=== PATIENT | male | born 1945 | race Caucasian/White ===

== ENCOUNTER 2017-10-20 11:42 | Inpatient (IN) | payer OTHER ==
[~2017-10-20] VITALS: Ht 175.3 cm; Wt 105.7 kg
--- NOTE | ~2017-10-20 | EKG ---
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 : 1945 Requested By: Meg Zhang Order Number: [id number] MD: Manjeet Winters Measurements Intervals [place] Rate: 80 P: [place]: QRS: -64 QRSD: 175 T: 102 QT: 456 QTc: 527 Interpretive Statements V-paced complexes No further analysis attempted due to paced rhythm Compared to ECG 04/07/2015 14:29:59 Ventricular pacing now present Electronically Signed On 10-21-2017 7:59:35 MARINE PLUMBER by Manjeet Winters [email or web address] <ELECTRONICALLY SIGNED> By: Manjeet Winters MD, [facility] 10/21/17 0759 1152 51 Manjeet Winters MD, FACC /EPI
[~2017-10-20 11:42] MED LIST: ADULT LOW DOSE81 MG PO; ALPRAZOLAM ER1 MG PO; ALPRAZOLAM1 MG PO; AMBIEN 10 MG TA10 MG PO; AMPICILLIN SOD500 MG PO; ASPIR 8181 MG PO; ASPIRIN EC81 M1 PO; ASPIRIN325 PO; AUGMENTIN 875-1 EACH PO; AZITHROMYCIN 2250 MG PO; B-100 COMPLEX1 EAC1 PO; BENICAR HCT 401 EAC1 PO; BENICAR20 MG PO; BENICAR40 MG PO; CARVEDILOL25 MG PO; CEFTIN 250 MG250 MG PO; CLOPIDOGREL PO; CO Q-10100 MG PO; COREG PO; DAZIDOX20 MG PO; DEMADEX20 MG PO; ESOMEPRAZOLE PO; FLONASE16 GM NASAL; GLUCOPHAGE500 MG PO; HYDROCHLOROTHIA25 M2 PO; IMDUR 30 MG TAB30 M1 PO; IMDUR 60 MG TAB60 M1 PO; ISOSORBIDE DINI30 MG PO; LIVALO1 MG; MULTI-VITAMIN1 EAC5 PO; NASAL & SINUS D30 MG PO; NEPHROCAPS SOFT1 CAP PO; NEXIUM20 M1 PO; NITROSTAT0.4 MG SUBLING; NORVASC10 MG PO; OMEPRAZOLE 20 M20 MG PO; OMEPRAZOLE MAGN20 MG PO; OXYCODONE HCL15 MG PO; OXYCODONE HCL20 M1 PO; PACERONE 200 M200 M1 PO; POTASSIUM20 PO; PRADAXA150 MG PO; PRAVACHOL40 MG PO; PRILOSEC 20 MG20 MG PO; SYNTHROID50 MCG PO; TYLENOL325 MG PO; VITAMINC500 PO
[2017-10-20 11:49] VITALS: BP 132/88
[2017-10-20 12:25] LABS: ABSOLUTE NEUTROPHILS 6.2 thou/uL (1.4-8.2); BASOPHILS 0.9 % (0.0-2.0); EOSINOPHILS 1.7 % (0.0-3.0); HEMATOCRIT 34.6 % (42.0-52.0); HEMOGLOBIN 11.1 gm/dL (14.0-18.0); LYMPHOCYTES 10.9 % (24.0-44.0); MCH 27.1 pg (26.0-34.0); MCHC 32.1 g/dL (28.0-37.0); MCV 84.4 fL (80.0-100.0); MONOCYTES 7.3 % (1.0-8.0); PLATELET COUNT 232 thou/uL (150-400); POLYS 79.2 % (36.0-66.0); RDW 16.6 % (10.5-14.5); WBC 7.8 thou/uL (4.0-11.0)
[2017-10-20 12:44] LABS: ANION GAP 6 mmol/L (7-16); BUN 20 mg/dL (7-18); CALCIUM 9.1 mg/dL (8.5-10.1); CHLORIDE 108 mmol/L (98-107); CO2 32 mmol/L (21-32); CREATININE 1.5 mg/dL (0.7-1.3); GLUCOSE 141 mg/dL (74-106); POTASSIUM 3.5 mmol/L (3.5-5.1); SODIUM 146 mmol/L (136-145)
[2017-10-20 12:52] LABS: TROPONIN-I < 0.04 ng/mL (<0.06)
[2017-10-20 16:36] VITALS: BP 146/93
[2017-10-20 17:09] VITALS: BP 144/90
[2017-10-20 17:20] VITALS: BP 152/91
[2017-10-20 20:12] VITALS: BP 122/63
[2017-10-21 00:20] VITALS: BP 156/63
[2017-10-21 04:30] VITALS: BP 162/98
[2017-10-21 08:40] VITALS: BP 145/83
[2017-10-21 16:20] VITALS: BP 131/75
[2017-10-21 20:46] VITALS: BP 135/71
[2017-10-22 04:00] VITALS: BP 157/83
[2017-10-22 07:59] VITALS: BP 155/99
[2017-10-22] MEDS ORDERED: LEVAQUIN 500 M500 M2 PO (09:51)
[2017-10-22] MEDS ORDERED: OSELB75 PO (09:51)
[2017-10-22 14:12] VITALS: BP 155/99
[2017-10-22 14:28] VITALS: BP 155/99
[2017-10-24 00:09] LABS: ADENOVIRUS Negative (Negative); INFLUENZA A Negative (Negative); INFLUENZA B Negative (Negative); METAPNEUMOVIRUS Negative (Negative); PARAINFLUENZA 1 Negative (Negative); PARAINFLUENZA 2 Negative (Negative); PARAINFLUENZA 3 Negative (Negative); RHINOVIRUS Negative (Negative); RSV A Negative (Negative); RSV B Negative (Negative)
[2017-11-19] MEDS ORDERED: IMDUR 30 MG TAB30 M1 PO (07:56)
[2017-11-19] MEDS ORDERED: DEMADEX20 MG PO (08:01)
[2017-11-19] MEDS ORDERED: XANAX1 MG PO (08:02)
== END 2017-10-22 16:01 | disposition home or self-care (01) | DRG 193 ==
LOC: ER 11:42 → EROBS 15:22 → 3W 15:22 → ENTRNSPT 10-22 15:47 → EDTRNSPTSTS 10-22 15:49 → 3W 10-22 16:01
PROVIDERS: Emergency Medicine; Specialist
DX: J12.9 Viral pneumonia, unspecified (principal); J96.01 Acute respiratory failure with hypoxia; E11.9 Type 2 diabetes mellitus without complications; K21.9 Gastro-esophageal reflux disease without esophagitis; G47.33 Obstructive sleep apnea (adult) (pediatric); I12.9 Hypertensive chronic kidney disease with stage 1 through stage 4 chronic kidney disease, or unspecified chronic kidney disease; N18.9 Chronic kidney disease, unspecified; I25.5 Ischemic cardiomyopathy; I48.91 Unspecified atrial fibrillation; Z95.810 Presence of automatic (implantable) cardiac defibrillator; Z86.73 Personal history of transient ischemic attack (TIA), and cerebral infarction without residual deficits; Z79.51 Long term (current) use of inhaled steroids; Z79.82 Long term (current) use of aspirin; Z79.899 Other long term (current) drug therapy; Z28.21 Immunization not carried out because of patient refusal
CPT/HCPCS: 10879

== ENCOUNTER → 2017-11-19 | Outpatient (CLI) | payer OTHER ==
[~2017-11-19] VITALS: Ht 175.3 cm; Wt 106.6 kg
[~2017-11-19] MED LIST changes: +LEVAQUIN 500 M500 M2 PO; +OSELB75 PO; +XANAX1 MG PO
--- NOTE | ~2017-11-19 | CATHLAB ---
[facility] [address] [place] [address] INVASIVE PROCEDURE REPORT Name: ORLANDO RAMOS Room #: REG [facility] [id number] Admission: 11/19/17 Attend Phys: Manjeet Wintres, Discharge: Date of : 43 Date of Service: 12/18/17725 Report #: [id number] THIS REPORT FOR: //name// CC: Manjeet Meza DATE OF SERVICE: 11/19/2017 PROCEDURE: Cardioversion. INDICATION: Atrial flutter. DESCRIPTION OF PROCEDURE: The potential benefits and risks of the procedure were discussed at length with the patient who understood. Full written and informed consent was obtained. The patient was sedated with intravenous Versed and fentanyl, 100 biphasic synchronous joules were applied to the chest with prompt conversion of atrial flutter to sinus rhythm. He remained in hemodynamically, electrically and neurologically stable condition and was discharged home. CONCLUSION: Successful cardioversion of atrial flutter to sinus rhythm with a single 100 biphasic synchronous joule shock site. <ELECTRONICALLY SIGNED> By: Manjeet Winters MD, FACC 12/19/17 0750 5 0742 Manjeet Winters MD, FACC /nt
[2017-11-19 07:33] LABS: HEMATOCRIT 35.2 % (42.0-52.0); HEMOGLOBIN 11.5 gm/dL (14.0-18.0); MCH 26.9 pg (26.0-34.0); MCHC 32.6 g/dL (28.0-37.0); MCV 82.6 fL (80.0-100.0); RBC 4.26 mil/uL (4.50-6.00); RDW 16.6 % (10.5-14.5); WBC 7.4 thou/uL (4.0-11.0)
[2017-11-19 07:39] VITALS: BP 154/92
[2017-11-19 07:39] LABS: CALCIUM 8.7 mg/dL (8.5-10.1); CREATININE 1.8 mg/dL (0.7-1.3); POTASSIUM 3.7 mmol/L (3.5-5.1)
[2017-11-19 07:45] LABS: ALBUMIN 3.3 g/dL (3.4-5.0); TOTAL BILIRUBIN 0.8 mg/dL (<0.1-1.0); TOTAL PROTEIN 6.6 g/dL (6.4-8.2)
[2017-11-19 07:46] LABS: INR 1.2; PROTIME 12.7 Seconds (9.3-11.4)
== END | disposition home or self-care (01) ==
LOC: CATH 07:05
PROVIDERS: Internal Medicine
DX: I48.92 Unspecified atrial flutter (principal)

== ENCOUNTER → 2018-12-09 | Outpatient (CLI) | payer OTHER ==
--- NOTE | 2018-12-09 13:03 | 2DMMODE ---
[facility] [place] [address] 2 D/M-MODE ECHOCARDIOGRAM Name: ORLANDO RAMOS Room #: REG German#: [id number] ������������� Admission: 12/09/18 ������������� Attend Phys: Manjeet Winters, Discharge: ��� ������������� ��� Date of : 43 Date of Service: 12/09/18 1303 �� Report #: [id number] �������� ��������������������������������������������[id number] THIS REPORT FOR: //name// APPROVED REPORT Study performed: 12/09/2018 10:22:29 EXAM: Comprehensive 2D, Doppler, and color-flow Echocardiogram Patient Location: Out-Patient Room #: Echo lab 1 Status: routine BSA: 2.19 HR: 60 bpm BP: 136/86 mmHg Rhythm: NSR Other Information Study Quality: Technically Limited Indications Pacemaker CAD CABG Volumes Left Atrial Volume (Systole) Single Plane 4CH: 160.04 mL Single Plane 2CH: 134.56 mL LA ESV Index: 73.00 mL/m2 Aortic Valve AoV Peak Josse.: 1.05 m/s AO Peak Gr.: 4.37 mmHg LVOT Max P.36 mmHg LVOT Max V: 0.92 m/s Mitral Valve E/A Ratio: 0.9 MV Decel. Time: 351.23 ms MV E Max Josse.: 0.52 m/s MV A Josse.: 0.57 m/s MV PHT: 101.86 ms IVRT: 179.93 ms Pulmonary Valve PV Peak Josse.: 0.84 m/s PV Peak Gr.: 2.79 mmHg [facility] [address] [place] [address] 2 D/M-MODE ECHOCARDIOGRAM Name: RACHELORLANDO Karin Room #: REG [facility] [id number] ������������� Admission: 12/09/18 ������������� Attend Phys: Manjeet Winters, Discharge: ��� ������������� ��� Date of : 43 Date of Service: 12/09/18 1303 �� Report #: [id number] �������� ��������������������������������������������[id number] Tricuspid Valve TR Peak Josse.: 2.53 m/s TR Peak Gr.: 25.55 mmHg PA Pressure: 25.00 mmHg Left Ventricle The left ventricle is normal size. There is normal left ventricular wall thickness. The left ventricular systolic function is at the lower limits of normal. Hypokinesis base of inferior wall and septum. LVEF is 50%. This study is not technically sufficient to allow evaluation of the LV diastolic function. Right Ventricle The right ventricle is normal size. The right ventricular systolic function is normal. Pacemaker lead is present in the right ventricle. Atria Left atrium is dilated. Right atrium is dilated. Pacemaker lead is present in the right atrium. Aortic Valve The aortic valve is not well visualized, mildly calcified. Mild aortic regurgitation. There is no aortic valvular stenosis. Mitral Valve The mitral valve is normal in structure. Mild mitral regurgitation. No evidence of mitral valve stenosis. Tricuspid Valve The tricuspid valve is normal in structure. There is mild tricuspid regurgitation. Estimated PAP 25 mmHg plus the right atrial pressure. There is no pulmonary hypertension. Pulmonic Valve The pulmonary valve is normal in structure. Trace pulmonic regurgitation. Great Vessels The aortic root is normal in size. IVC is not well visualized. Pericardium There is no pericardial effusion. <Conclusion> [facility] [address] [place] [address] 2 D/M-MODE ECHOCARDIOGRAM Name: ORLANDO RAMOS Room #: REG [facility]ITAL[facility]#: [id number] ������������� Admission: 12/09/18 ������������� Attend Phys: Manjeet Winters, Discharge: ��� ������������� ��� Date of : 43 Date of Service: 12/09/18 1303 �� Report #: [id number] �������� ��������������������������������������������[id number] The left ventricular systolic function is at the lower limits of normal. Hypokinesis base of inferior wall and septum. LVEF is 50%. Both atria are mildly dilated. Pacing wires in right heart. The aortic valve is not well visualized, mildly calcified. Mild aortic regurgitation, no stenosis. The mitral valve is normal in structure. Mild mitral regurgitation. There is no pericardial effusion. ��������������������������������������������� <ELECTRONICALLY SIGNED> ���������������������������������������� By: Manjeet Winters MD, [facility] ��������������������������������������������� 12/09/18 1303 130 02 Manjeet Winters MD, FACC /INF
== END ==
LOC: CV 11-10 07:47
DX: I08.3 Combined rheumatic disorders of mitral, aortic and tricuspid valves (principal); I65.23 Occlusion and stenosis of bilateral carotid arteries; I10 Essential (primary) hypertension; I25.10 Atherosclerotic heart disease of native coronary artery without angina pectoris; Z95.1 Presence of aortocoronary bypass graft

== ENCOUNTER 2019-02-01 03:00 | Emergency (ER) | payer OTHER ==
[~2019-02-01] VITALS: Ht 175.3 cm; Wt 103.0 kg
[2019-02-01 04:14] LABS: ABSOLUTE NEUTROPHILS 6.1 thou/uL (1.4-8.2); BASOPHILS 0.4 % (0.0-2.0); EOSINOPHILS 1.2 % (0.0-3.0); HEMATOCRIT 33.3 % (42.0-52.0); HEMOGLOBIN 10.7 gm/dL (14.0-18.0); LYMPHOCYTES 8.3 % (24.0-44.0); MCH 26.5 pg (26.0-34.0); MCHC 32.1 g/dL (28.0-37.0); MCV 82.7 fL (80.0-100.0); MONOCYTES 9.3 % (1.0-8.0); PLATELET COUNT 181 thou/uL (150-400); POLYS 80.8 % (36.0-66.0); RBC 4.03 mil/uL (4.50-6.00); RDW 16.8 % (10.5-14.5); WBC 7.6 thou/uL (4.0-11.0)
[2019-02-01 04:24] LABS: ANION GAP 9 mmol/L (7-16); BUN 27 mg/dL (7-18); CHLORIDE 107 mmol/L (98-107); CO2 29 mmol/L (21-32); CREATININE 1.5 mg/dL (0.7-1.3); GLUCOSE 155 mg/dL (74-106); POTASSIUM 3.6 mmol/L (3.5-5.1); SODIUM 145 mmol/L (136-145)
[2019-02-01] MEDS ORDERED: ONDANSETRON ODT8 MG PO (04:26)
[2019-02-01 04:27] LABS: APTT 43.4 Seconds (24.5-32.8); INR 1.2; PROTIME 12.1 Seconds (9.3-11.4)
[2019-02-01 04:34] LABS: ALBUMIN 3.2 g/dL (3.4-5.0); SGOT 31 U/L (15-37); SGPT 35 U/L (30-65); TOTAL BILIRUBIN 1.4 mg/dL (<0.1-1.0); TOTAL PROTEIN 6.6 g/dL (6.4-8.2); TROPONIN-I <0.06 ng/mL (<0.06)
[2019-02-01 05:18] VITALS: BP 172/84
[2019-02-01 05:35] LABS: URINE BILIRUBIN NEGATIVE (Negative); URINE BLOOD NEGATIVE (Negative); URINE CLARITY CLEAR; URINE COLOR YELLOW; URINE GLUCOSE-RANDOM* NEGATIVE (Negative); URINE KETONES NEGATIVE (Negative); URINE LEUKOCYTES NEGATIVE (Negative); URINE NITRITE NEGATIVE (Negative); URINE PROTEIN (DIPSTICK) NEGATIVE (Negative); URINE UROBILINOGEN 0.2 E.U./dl (0.2-1.0)
--- NOTE | 2019-02-01 10:39 | EKG ---
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1945 Requested By: Wilner Murphy Order Number: [id number] MD: Tristan Bowers Measurements Intervals [place] Rate: 78 P: 34 [place]: 178 QRS: 5 QRSD: 124 T: -8 QT: 429 QTc: 489 Interpretive Statements Sinus rhythm Atrial premature complex Left ventricular hypertrophy Borderline T abnormalities, inferior leads Borderline prolonged QT interval Compared to ECG 10/20/2017 11:52:35 Atrial premature complex(es) now present Left ventricular hypertrophy now present T-wave abnormality now present Ventricular-paced complex(es) or rhythm no longer present Electronically Signed On 02-01-2019 10:38:51 CDT by Tristan Bowers [email or web address] ��������������������������������������������� <ELECTRONICALLY SIGNED> ���������������������������������������� By: Tristan Bowers MD ��������������������������������������������� 02/01/19 1038 0309 0309 Tristan Bowers MD /EPI
--- NOTE | 2019-02-01 10:39 | EKG ---
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 : 1945 Requested By: Wilner Murphy Order Number: [id number] MD: Tristan Bowers Measurements Intervals [place] Rate: 59 P: -7 NE: 121 QRS: 15 QRSD: 116 T: 133 QT: 438 QTc: 434 Interpretive Statements Sinus rhythm Ventricular premature complex LVH with secondary repolarization abnormality Compared to ECG 10/20/2017 11:52:35 Ventricular premature complex(es) now present Left ventricular hypertrophy now present Electronically Signed On 02-01-2019 10:39:13 CDT by Tristan Bowers [email or web address] ��������������������������������������������� <ELECTRONICALLY SIGNED> ���������������������������������������� By: Tristan Bowers MD ��������������������������������������������� 02/01/19 1039 0333 0333 Tristan Bowers MD /VINCENT
== END 2019-02-01 05:18 | disposition home or self-care (01) ==
LOC: ER 03:00
PROVIDERS: Emergency Medicine
DX: E11.22 Type 2 diabetes mellitus with diabetic chronic kidney disease (principal); I13.0 Hypertensive heart and chronic kidney disease with heart failure and stage 1 through stage 4 chronic kidney disease, or unspecified chronic kidney disease; N18.9 Chronic kidney disease, unspecified; I50.9 Heart failure, unspecified; K21.9 Gastro-esophageal reflux disease without esophagitis; G47.33 Obstructive sleep apnea (adult) (pediatric); I25.5 Ischemic cardiomyopathy; I48.91 Unspecified atrial fibrillation; Z86.73 Personal history of transient ischemic attack (TIA), and cerebral infarction without residual deficits; Z87.891 Personal history of nicotine dependence; Z79.899 Other long term (current) drug therapy; Z90.49 Acquired absence of other specified parts of digestive tract

== ENCOUNTER → 2019-03-11 | Outpatient (CLI) | payer OTHER ==
[~2019-03-11] MED LIST changes: +ONDANSETRON ODT8 MG PO
== END ==
LOC: RAD 11:01
DX: R14.0 Abdominal distension (gaseous) (principal); Z90.49 Acquired absence of other specified parts of digestive tract

== ENCOUNTER 2019-05-29 10:36 | Inpatient (IN) | payer OTHER ==
[~2019-05-29] VITALS: Ht 175.3 cm; Wt 104.8 kg
--- NOTE | ~2019-05-29 | EKG ---
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 : 1945 Requested By: Manjeet Winters Order Number: [id number] MD: Measurements Intervals [place] Rate: 60 P: [place]: 112 QRS: 20 QRSD: 115 T: 241 QT: 450 QTc: 450 Interpretive Statements Atrial-paced complexes Nonspecific intraventricular conduction delay Repol abnrm, severe global ischemia (LM/MVD) Compared to ECG 05/31/2019 09:22:20 Intraventricular conduction delay now present Early repolarization now present Possible ischemia now present Ventricular-paced complex(es) or rhythm no longer present [email or web address] By: 0708 0708 Epiphany Epiphany, /EPI
--- NOTE | ~2019-05-29 | EKG ---
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 : 1945 Requested By: Bryce Garcia Order Number: [id number] MD: Measurements Intervals [place] Rate: 60 P: [place]: 112 QRS: 20 QRSD: 115 T: 241 QT: 450 QTc: 450 Interpretive Statements Atrial-paced complexes Nonspecific intraventricular conduction delay Repol abnrm, severe global ischemia (LM/MVD) Compared to ECG 05/31/2019 09:22:20 Intraventricular conduction delay now present Early repolarization now present Possible ischemia now present Ventricular-paced complex(es) or rhythm no longer present [email or web address] By: 0708 0708 Epiphany Epiphany, MA /EPI
[2019-05-29 10:45] VITALS: BP 90/37
[2019-05-29 11:15] LABS: ABSOLUTE NEUTROPHILS 5.7 thou/uL (1.4-8.2); BASOPHILS 0.5 % (0.0-2.0); EOSINOPHILS 0.4 % (0.0-3.0); HEMATOCRIT 30.4 % (42.0-52.0); HEMOGLOBIN 9.8 gm/dL (14.0-18.0); LYMPHOCYTES 6.5 % (24.0-44.0); MCH 26.3 pg (26.0-34.0); MCHC 32.3 g/dL (28.0-37.0); MCV 81.5 fL (80.0-100.0); MONOCYTES 6.3 % (1.0-8.0); PLATELET COUNT 157 thou/uL (150-400); POLYS 86.3 % (36.0-66.0); RBC 3.73 mil/uL (4.50-6.00); RDW 19.4 % (10.5-14.5); WBC 6.6 thou/uL (4.0-11.0)
[2019-05-29 11:18] LABS: CALCIUM 9.9 mg/dL (8.5-10.1); CREATININE 2.3 mg/dL (0.7-1.3); POTASSIUM 4.1 mmol/L (3.5-5.1)
[2019-05-29 11:28] LABS: ALBUMIN 3.1 g/dL (3.4-5.0); TOTAL BILIRUBIN 1.3 mg/dL (<0.1-1.0); TOTAL PROTEIN 6.7 g/dL (6.4-8.2)
[2019-05-29 11:29] LABS: TROPONIN-I 2.54 ng/mL (<0.06)
--- NOTE | 2019-05-29 12:24 | NUR ---
Pt requested this PARA to call his PCP to discover what kidney test was ordered for outpatient evaluation. Dr. Louis Meza's office called at [phone] at this time. Message left with Dr. Susana Zuniga's DAIRY TESTER, with ER phone callback number.
[2019-05-29 12:32] LABS: ANISOCYTOSIS 2+; OVALOCYTES FEW; PLATELET ESTIMATE NORMAL; POLYCHROMASIA SLIGHT
[2019-05-29 13:05] LABS: URINE BILIRUBIN NEGATIVE (Negative); URINE BLOOD TRACE (Negative); URINE CLARITY CLEAR; URINE COLOR YELLOW; URINE GLUCOSE-RANDOM* NEGATIVE (Negative); URINE KETONES NEGATIVE (Negative); URINE LEUKOCYTES NEGATIVE (Negative); URINE NITRITE NEGATIVE (Negative); URINE PROTEIN (DIPSTICK) NEGATIVE (Negative)
[2019-05-29 13:36] VITALS: BP 137/77
[2019-05-29 14:50] VITALS: BP 116/84
--- NOTE | 2019-05-29 14:51 | NUR ---
Nurse from PCP called back at this time, stated that ESR 2 days ago was 18
[2019-05-29 15:00] VITALS: BP 140/83
[2019-05-29 15:54] LABS: % SATURATION 15 % (20-39); IRON 45 ug/dL (65-175); TIBC 304 ug/dL (250-450)
--- NOTE | 2019-05-29 16:14 | 2DMMODE ---
[facility] [employer] [place] [address] 2 D/M-MODE ECHOCARDIOGRAM Name: ORLANDO RAMOS Room #: 206-P [facility]#: [id number] Admission: 05/29/19 Attend Phys: Bryce Garcia MD Discharge: Date of : 43 Date of Service: 05/29/19 1614 Report #: [id number] THIS REPORT FOR: //name// APPROVED REPORT Study performed: 05/29/2019 13:46:58 EXAM: Comprehensive 2D, Doppler, and color-flow Echocardiogram Patient Location: ER Room #: 12 Status: routine BSA: 2.27 HR: 83 bpm BP: 130/82 mmHg Rhythm: Pacemaker Other Information Study Quality: Technically DifficultTechnically Limited Indications Hypotension Congestive Heart Failure Diabetes Atrial Fibrillation Pacemaker Cardiomyopathy Hypertension/HDD Volumes Left Atrial Volume (Systole) Single Plane 4CH: 81.06 mL Single Plane 2CH: 120.28 mL LA ESV Index: 47.00 mL/m2 Aortic Valve AoV Peak Josse.: 0.95 m/s AO Peak Gr.: 3.62 mmHg LVOT Max P.92 mmHg LVOT Max V: 0.85 m/s Tricuspid Valve TR Peak Josse.: 2.52 m/s TR Peak Gr.: 25.49 mmHg PA Pressure: 25.00 mmHg [facility] [address] [place] [address] 2 D/M-MODE ECHOCARDIOGRAM Name: ORLANDO RAMOS Room #: 206-P ADM IN M.R.#: [id number] Admission: 05/29/19 Attend Phys: Bryce Garcia MD Discharge: Date of : 43 Date of Service: 05/29/19 1614 Report #: [id number] Left Ventricle The left ventricle is normal size. There is normal left ventricular wall thickness. Left ventricular systolic function is mild-moderately decreased. LVEF is 45%. Hypokinesis base of inferior wall and inferoseptum This study is not technically sufficient to allow evaluation of the LV diastolic function. Right Ventricle The right ventricle is normal size. The right ventricular systolic function is normal. Pacemaker lead is present in the right ventricle. Atria Left atrium is dilated. Right atrium is dilated. Pacemaker lead is present in the right atrium. Aortic Valve Aortic valve is mildly calcified. Mild aortic regurgitation. There is no aortic valvular stenosis. Mitral Valve Mild mitral annular calcification Moderate mitral regurgitation. No evidence of mitral valve stenosis. Tricuspid Valve The tricuspid valve is normal in structure. There is mild tricuspid regurgitation. Estimated PAP 25 mmHg plus the right atrial pressure. Pulmonic Valve Pulmonic valve is not well visualized. Great Vessels The aortic root is normal in size. IVC is not well visualized. Pericardium There is no pericardial effusion. <Conclusion> Left ventricular systolic function is mild-moderately decreased. LVEF is 45%. Hypokinesis base of inferior wall and inferoseptum Left atrium is mildly dilated. Aortic valve is mildly calcified. Mild aortic regurgitation, no stenosis. Mild mitral annular calcification. Moderate mitral regurgitation. [facility] [address] [place] [address] 2 D/M-MODE ECHOCARDIOGRAM Name: ORLANDO RAMOS Room #: 206-P ADM IN .R.#: [id number] Admission: 05/29/19 Attend Phys: Bryce Garcia MD Discharge: Date of : 43 Date of Service: 05/29/191613 Report #: [id number] There is mild tricuspid regurgitation. Estimated pulmonary artery pressure of 35 mmHg. There is no pericardial effusion. <ELECTRONICALLY SIGNED> By: Manjeet Winters MD, [facility] 05/29/191613 13 13 Manjeet Winters MD, FACC /INF
[2019-05-29 20:43] VITALS: BP 123/69
[2019-05-30] VITALS (7 sets, daily range): BP systolic 106–144; BP diastolic 52–87
--- NOTE | 2019-05-30 05:11 | NUR ---
RECEIVED PT'S CARE AT 1936; PT. ON BED; AXO4; DURING ASSESSMENT NO C/O PAIN; ST. WEARING O2 AT HOME PRN; O2 ON 4; TITRATE TO 3.5L; EDUCATED ABOUT FLUID RESTRICTIONS; ST. UNDERSTANDING; HS MEDICATION GIVEN; REFUSED SCDs; EDUCATED ABOUT IT; ASSESSMENT CHARGED; FOLLOWING POC; MONITORING; WILL PASS ON REPORT.
[2019-05-30 06:00] LABS: ABSOLUTE NEUTROPHILS 3.8 thou/uL (1.4-8.2); BASOPHILS 0.8 % (0.0-2.0); EOSINOPHILS 2.3 % (0.0-3.0); HEMATOCRIT 28.2 % (42.0-52.0); HEMOGLOBIN 9.2 gm/dL (14.0-18.0); LYMPHOCYTES 13.7 % (24.0-44.0); MCH 26.8 pg (26.0-34.0); MCHC 32.8 g/dL (28.0-37.0); MCV 81.7 fL (80.0-100.0); MONOCYTES 11.5 % (1.0-8.0); PLATELET COUNT 162 thou/uL (150-400); POLYS 71.7 % (36.0-66.0); RBC 3.45 mil/uL (4.50-6.00); RDW 19.4 % (10.5-14.5); WBC 5.2 thou/uL (4.0-11.0)
[2019-05-30 06:26] LABS: ANION GAP 12 mmol/L (7-16); BUN 30 mg/dL (7-18); CALCIUM 8.7 mg/dL (8.5-10.1); CHLORIDE 105 mmol/L (98-107); CHOLESTEROL 118 mg/dL (<200); CO2 28 mmol/L (21-32); CREATININE 1.8 mg/dL (0.7-1.3); GLUCOSE 101 mg/dL (74-106); HDL CHOLESTEROL 40 mg/dL (>40); LDL CHOLESTEROL 63 mg/dL (<100); MAGNESIUM 2.4 mg/dL (1.8-2.4); POTASSIUM 3.4 mmol/L (3.5-5.1); SODIUM 145 mmol/L (136-145); TRIGLYCERIDE 76 mg/dL (<150); VLDL 15 mg/dL (<40)
[2019-05-30 06:27] LABS: SERUM ASSESSMENT Clear
--- NOTE | 2019-05-30 10:34 | EKG ---
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 05/30/19 1033 1045 1045 Manjeet Winters MD, [facility] /EPI
--- NOTE | 2019-05-30 10:45 | EKG ---
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 : 1945 Requested By: Ashly Jenkins Order Number: [id number] MD: Manjeet Winters Measurements Intervals [place] Rate: 90 P: 236 [place]: 215 QRS: 13 QRSD: 105 T: 214 QT: 365 QTc: 447 Interpretive Statements Atrial flutter with 2-[address] and T wave abnormality Compared to ECG 02/01/2019 03:33:06 Intermittent ventricular pacing is no longer present Electronically Signed On 05-30-2019 10:45:43 CDT by Manjeet Winters [email or web address] <ELECTRONICALLY SIGNED> By: Manjeet Winters MD, [facility] 05/30/19 1045 6 6 Manjeet Winters MD, [facility] /EPI
--- NOTE | 2019-05-30 17:57 | NUR ---
ASSUMED CARE OF PT AT SHIFT CHANGE. ASSESSEMENTS CHARTED. MEDS GIVEN PER DEC. PT A&O. VSS, NO C/O PAIN. O2 SATS WNL ON 3L O2, NO C/O SOB. PT UP WITH PHYS THERAPY, TOLERATING WELL. PLAN IS FOR CARDIOVERSION SATURDAY. CONSENT SIGNED. DENIES NEEDS AT THIS TIME. WILL CONTINUE TO MONITOR AND FOLLOW POC.
--- NOTE | 2019-05-30 19:33 | NUR ---
VIEWED NURSE CHET WOO;Maira ASSESSMENTS AND CHARTING, AGREE WITH ASSESSMENTS AND CHARTING.
--- NOTE | 2019-05-31 03:47 | NUR ---
RECEIVED PT'S CARE AT 1920; PT. ON BED; RESTING WITH EYES CLOSED; WOKE UP FOR SHIFT CHANGE; AOX4; DURING ASSESSMENT PT. RESTING WITH EYES CLOSED; NO C/O PAIN; ST. "I DO NOT KNOW WHY I AM SO TIRED"; VS WNL; O2 SAT 98% ON 3L; HH WNL; NO C/O DIZZINESS OR SOB; ST. SOMETIMES REST FOR LONG PERIODS OF TIME AT HOME; HS MEDICATION GIVEN; THROUGH THE NIGHT PT. RESTING WITH EYES CLOSED; HR ON THE 80s; MONITORING; ASSESSMENT CHARGED; FOLLOWING POC; WILL PASS ON REPORT.
[2019-05-31 04:56] VITALS: BP 121/76
[2019-05-31 06:22] LABS: ALBUMIN 2.8 g/dL (3.4-5.0); CALCIUM 8.9 mg/dL (8.5-10.1); CREATININE 1.6 mg/dL (0.7-1.3); PHOSPHORUS 3.7 mg/dL (2.5-4.9); POTASSIUM 4.3 mmol/L (3.5-5.1)
[2019-05-31 08:00] VITALS: BP 136/76
--- NOTE | 2019-05-31 10:45 | EKG ---
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 : 1945 Requested By: Manjeet Winters Order Number: [id number] MD: Manjeet Winters Measurements Intervals [place] Rate: 80 P: 0 NE: 43 QRS: -64 QRSD: 174 T: 118 QT: 476 QTc: 550 Interpretive Statements Ventricular-paced rhythm No further analysis attempted due to paced rhythm Compared to ECG 05/30/2019 07:17:00 Ventricular pacing is now present Electronically Signed On 05-31-2019 10:45:05 CDT by Manjeet Winters [email or web address] <ELECTRONICALLY SIGNED> By: Manjeet Winters MD, [facility] 05/31/19 1045 1655 1655 Manjeet Winters MD, [facility] /EPI
--- NOTE | 2019-05-31 11:00 | EKG ---
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1945 Requested By: Manjeet Winters Order Number: [id number] MD: Manjeet Winters Measurements Intervals [place] Rate: 81 P: 109 IA: 237 QRS: -72 QRSD: 182 T: 112 QT: 478 QTc: 555 Interpretive Statements Ventricular-paced rhythm No further analysis attempted due to paced rhythm Compared to ECG 05/30/2019 07:17:00 No significant change was found Electronically Signed On 05-31-2019 11:00:29 CDT by Manjeet Winters [email or web address] <ELECTRONICALLY SIGNED> By: Manjeet Winters MD, [facility] 05/31/19 1100 1 1 Manjeet Winters MD, [facility] /EPI
[2019-05-31 12:00] VITALS: BP 110/66
[2019-05-31 16:00] VITALS: BP 139/85
--- NOTE | 2019-05-31 17:39 | NUR ---
ASSUMED CARE OF PT AT SHIFT CHANGE. ASSESSMENTS CHARTED. MEDS GIVEN PER DEC. VSS. A&O. PT C/O BEING VERY TIRED. PT SLEPT MOST OF DAY, ONLY GOT UP TO EAT MEALS. PT DENIES ANY NEEDS. WILL CONTINUE TO MONITOR AND FOLLOW POC.
--- NOTE | 2019-05-31 19:14 | NUR ---
ASSESSMENTS AND CHARTING DONE BY NURSE CHET WOO REVIEWED, AGREE WITH ASSESSMNETS AND CHARTING.
[2019-05-31 19:51] VITALS: BP 105/53
[2019-06-01] VITALS (7 sets, daily range): BP systolic 109–139; BP diastolic 50–81
--- NOTE | 2019-06-01 03:26 | NUR ---
RECEIVED PT'S CARE AT 1900; PT. ON BED; AWAKE; WATCHING TV; AOX4; DURING ASSESSMENT NO C/O PAIN; PT. UPSET DUE TO ELEVATED BLOOD SUGAR; 194; ST. "I DO NOT UNDERSTAND WHY IS HIGH NOW WHEN I CAME WAS LOW"; "AT HOME IS OK"; "I DO NOT TAKE ANYTHING"; EDUCATED ABOUT SOMETIMES WHEN THE BODY IS UNDER STRESS THE BLOOD SUGAR MIGHT GOES UP; NO ANSWER BACK; ST. HAVING 2 BMs EARLY ON THE DAY; PASSING FLATUS; EDUCATED ABOUT NPO AFTER MIDNIGHT; ST. UNDERSTANDING; ABLE TO REST MOST OF THE NIGHT WITH EYES CLOSED; HR ON THE 80s; VPACED; ASSESSMENT CHARGED; MONITORING; WILL PASS ON REPORT.
[2019-06-01 05:17] LABS: ALBUMIN 2.7 g/dL (3.4-5.0); CALCIUM 8.4 mg/dL (8.5-10.1); CREATININE 1.5 mg/dL (0.7-1.3); POTASSIUM 3.6 mmol/L (3.5-5.1)
[2019-06-01] MEDS ORDERED: PACERONE 200 M200 M1 PO (08:02)
--- NOTE | 2019-06-01 08:34 | NUR ---
PT DROWSY, AWAKES TO VERBAL EASILY. IVF INFUSING INTO RT AC. REMAINS IN NSR AFTER DEFIB. ON O2 NC 5L. VSS, ON MONITOR. WILL CONTINUE TO RECOVER.
--- NOTE | 2019-06-01 09:15 | NUR ---
AWAKENS EASILY. ALERT AND ORIENTED. O2 SAT 96% ON 5L NC. REPORT CALLED TO INPT NURSE. WILL CONTINUE TO MONITOR.
--- NOTE | 2019-06-01 09:44 | NUR ---
SLIGHTLY DROWSY, AWAKES EASILY. 98% ON 3L NC. TO BE RETURNED TO RM 206.
--- NOTE | 2019-06-01 15:21 | NUR ---
VSS PT CARDIOVERTED TODAY REMAINS NSR WITH 1% AV BLOCK WITH PACED BEATS. O2 SAT 1L IS 92%, O2 SAT RA WHILE BEIN WALKED IN HUERTAS BY PT IS 88%, PT L[LACED ON O2 AT 1L. PT STILL SALINAS WITH EXERTION, LUNGS DIMINISHED. WILL CONTINUE TO MONITER AND CARE FOR PT PER PLAN OF CARE
--- NOTE | 2019-06-01 15:35 | NUR ---
met with patient who resides at home with . Patient reports steps to enter home and inside home but he reports no difficulty with steps. Patient reports he has home oxygen but cannot recall company. Sp with who reports [employer] is home oxygen company. patient wears 02 PRN. he has device which tells when he needs to wear oxygen, per . She reports Dr Meza told him to wear as needed and patient wears a CPAP at night. 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
--- NOTE | 2019-06-02 01:46 | NUR ---
ASSUMED CARE OF PATIENT AT 1900. VSS, AFEBRILE. DENIES PAIN, SOA OR N/V. UP AD CONSUELO TO THE BATHROOM. POC DISCUSSED, ALL QUESTIONS ANSWERED, RESTING COMFORTABLY AT THIS TIME.
[2019-06-02 03:49] VITALS: BP 147/78
[2019-06-02 08:05] VITALS: BP 134/81
[2019-06-02 11:33] VITALS: BP 134/81
[2019-06-02 11:35] VITALS: BP 135/63
[2019-06-02] MEDS ORDERED: TORSEMIDE20 MG PO (12:06)
--- NOTE | 2019-06-02 17:04 | NUR ---
PATIENT DISCHARGED TO HOME, PRESCRIPTIONS AND DISCHARGE INSTRUCTIONS GIVEN TO PATIENT, STATED UNDERSTANDING, ESCORTED OUT OF HOSPITAL BY WHEELCHAIR ACCOMPANIED BY . Dorota MCNULTY.
--- NOTE | 2019-06-02 17:17 | EKG ---
[address] [facility] [address] ELECTROCARDIOGRAM REPORT Name: ORLANDO RAMOS Room #: 206-P DIS IN M.R.#: [id number] Admission: 05/29/19 Attend Phys: Bryce Garcia MD Discharge: 06/02/19 Date of : 43 Report #: [id number] THIS REPORT FOR: //name// [facility] Test Date: 2019-06-01 Test Time: 07:27:43 Pat Name: ORLANDO RAMOS Department: Room: 206 P Gender: M Procurement Technician: PAYAM : 1945 Requested By: Manjeet Winters Order Number: [id number] MD: Manjeet Winters Measurements Intervals [place] Rate: 86 P: 227 IA: 211 QRS: 18 QRSD: 109 T: 221 QT: 388 QTc: 464 Interpretive Statements Sinus or ectopic atrial rhythm Repol abnrm, diffuse Baseline wander in lead(s) V3,V6 Compared to ECG 05/31/2019 09:22:20 Ventricular pacing is no longer present Electronically Signed On 06-02-2019 17:17:37 CDT by Manjeet Winters [email or web address] <ELECTRONICALLY SIGNED> By: Manjeet Winters MD, FACC 06/02/19 1717 0727 Manjeet Winters MD, [facility] /EPI
--- NOTE | 2019-06-02 17:19 | EKG ---
[address] [place] [address] ELECTROCARDIOGRAM REPORT Name: ORLANDO RAMOS Room #: 206-P [facility] IN M.R.#: [id number] Admission: 05/29/19 Attend Phys: Bryce Garcia MD Discharge: 06/02/19 Date of : 43 Report #: [id number] THIS REPORT FOR: //name// [facility] Test Date: 2019-06-01 Test Time: 08:48:07 Pat Name: ORLANDO RAMOS Department: Room: 206 P Gender: M Electronic Warfare Officer: PAYAM : 1945 Requested By: Manjeet Winters Order Number: [id number] MD: Manjeet Winters Measurements Intervals [place] Rate: 60 P: 7 NE: 129 QRS: 24 QRSD: 117 T: 221 QT: 479 QTc: 479 Interpretive Statements Atrial-paced complexes Probable LVH with secondary repol abnrm Borderline prolonged QT interval Compared to ECG 05/31/2019 09:22:20 Atrial pacing with sinus rhythm has replaced atrial flutter Electronically Signed On 06-02-2019 17:19:15 CDT by Manjeet Winters [email or web address] <ELECTRONICALLY SIGNED> By: Manjeet Winters MD, [facility] 06/02/19 1719 0848 0848 Manjeet Winters MD, [facility] /EPI
--- NOTE | 2019-06-03 09:24 | CATHLAB ---
[facility] [place] [address] INVASIVE PROCEDURE REPORT Name: ORLANDO RAMOS Room #: 206-P [facility] IN ..#: [id number] Admission: 05/29/19 Attend Phys: Bryce Garcia MD Discharge: 06/02/19 Date of : 43 Date of Service: 06/01/1944 Report #: [id number] THIS REPORT FOR: //name// CC: Bryce Meza CARDIOVERSION REASON FOR STUDY: Atrial flutter. PROCEDURE: The potential benefits and risks of the procedure were discussed at length with the patient, who understood. Full written and informed consent was obtained. The patient was sedated with intravenous Versed and fentanyl. A 120 biphasic synchronous joules were applied to the chest with prompt conversion of atrial flutter to sinus rhythm with atrial pacing and ventricular sensing. He tolerated the procedure well and was transported back to his hospital room in stable condition. SUMMARY: Successful cardioversion of atrial flutter to sinus rhythm with atrial pacing and ventricular sensing. <ELECTRONICALLY SIGNED> By: Manjeet Winters MD, FACC 06/03/19 0924 0843 213 Manjeet Winters MD, FACC /nt
== END 2019-06-02 17:02 | disposition home or self-care (01) | DRG 280 ==
LOC: ER 10:36 → EROBS 13:32 → 2N 13:32 → ENTRNSPT 06-02 16:46 → 2N 06-02 17:02
PROVIDERS: Emergency Medicine; Hospitalist; Nurse Practitioner; Nurse Practitioner Adult Health; ADMIT Hospitalist
PROC: 5A2204Z Restoration of Cardiac Rhythm, Single (ICD-10-PCS; principal; 2019-06-01)
DX: I21.4 Non-ST elevation (NSTEMI) myocardial infarction (principal); I50.23 Acute on chronic systolic (congestive) heart failure; J96.01 Acute respiratory failure with hypoxia; N17.9 Acute kidney failure, unspecified; I48.92 Unspecified atrial flutter; I13.0 Hypertensive heart and chronic kidney disease with heart failure and stage 1 through stage 4 chronic kidney disease, or unspecified chronic kidney disease; D68.59 Other primary thrombophilia; E11.51 Type 2 diabetes mellitus with diabetic peripheral angiopathy without gangrene; J84.10 Pulmonary fibrosis, unspecified; E78.5 Hyperlipidemia, unspecified; I71.4 Abdominal aortic aneurysm, without rupture; K21.9 Gastro-esophageal reflux disease without esophagitis; E11.22 Type 2 diabetes mellitus with diabetic chronic kidney disease; E03.9 Hypothyroidism, unspecified; I08.1 Rheumatic disorders of both mitral and tricuspid valves; I48.0 Paroxysmal atrial fibrillation; D50.9 Iron deficiency anemia, unspecified; I25.10 Atherosclerotic heart disease of native coronary artery without angina pectoris; I25.5 Ischemic cardiomyopathy; N18.9 Chronic kidney disease, unspecified; Z95.1 Presence of aortocoronary bypass graft; Z95.810 Presence of automatic (implantable) cardiac defibrillator; Z79.899 Other long term (current) drug therapy; Z86.73 Personal history of transient ischemic attack (TIA), and cerebral infarction without residual deficits; Z87.891 Personal history of nicotine dependence
CPT/HCPCS: 10081; 10194

== ENCOUNTER → 2019-07-01 | Outpatient (CLI) | payer OTHER ==
[~2019-07-01] MED LIST changes: +TORSEMIDE20 MG PO
== END ==
LOC: RAD 16:09
DX: M47.817 Spondylosis without myelopathy or radiculopathy, lumbosacral region (principal); M48.07 Spinal stenosis, lumbosacral region; G89.29 Other chronic pain; Z95.828 Presence of other vascular implants and grafts

== ENCOUNTER → 2019-07-20 | Outpatient (CLI) | payer OTHER ==
[~2019-07-20] VITALS: Ht 175.3 cm; Wt 104.3 kg
[~2019-07-20] MED LIST changes: +CLOPIDOGREL75 MG PO; +LEVOTHYROXINE88 MCG PO; +PREDNISONE 20 M20 M1 PO; +ROXICODONE30 M1 PO
[2019-07-20 10:10] VITALS: BP 104/50
[2019-07-20 10:14] VITALS: BP 104/59
--- NOTE | 2019-07-20 10:34 | NUR ---
Pain Clinic Assessment: 1. History of Osteoarthritis: NONE History of Rheumatoid Arthritis: NONE 2. Height: 5 ft. 9 in. 175.3 cm. Weight: 230.0 lb. oz. 104.328 kg. Patient's BMI: 33.9 3. Vital Signs: BP: 104/59 Pulse: 60 Resp: 14 Temp: 02 Sat: 97 ECG Mon: 4. Pain Intensity: 3-NOW, 9-WHEN BAD 5. Fall Risk: Dizziness: N Needs help standing or walking: N Fallen in the last 3 months: N Fall risk comments: 6. Patient on Blood Thinner: Dabigatran Etex (Pradaxa) 7. History of Hypertension: Y 8. Opioid Therapy greater than 6 weeks: Opiate Contract Signed: 9. Risk Assessment Tool Provided: LOW 10. Functional Assessment Tool: 55/70 11. Recreational Drug Use: Never Drug Type: Tobacco Use: Never Smoker Tobacco Type: Amount or Packs/day: How Many Years: Alcohol Use: No Frequency: Quant:
--- NOTE | 2019-07-23 16:52 | HPC ---
[facility] [address] [address] PAIN MANAGEMENT CONSULTATION Name: RACHELORLANDO Karin Room #: REG [facility]#: [id number] Admission: 07/20/19 Attend Phys: Wesly Salter MD Discharge: Date of : 43 Report #: [id number] THIS REPORT FOR: //name// CC: Manjeet Winters MD [facility] Wesly Meza DO DATE OF SERVICE: 07/20/2019 The patient is a patient who I am seeing today at the request of his therapist respiratory, Dr. Winters. Two weeks ago, he is experiencing severe back pain that he scored as a 9/10. He is here today reporting that he has had substantial reductions in his pain and the pain is now 0 at worse, perhaps 3 over the last couple of days. He kept his appointment because Dr. Winters has sent him. He does not have radicular pain. His pain is steady, aching and stabbing, mostly across his lumbosacral segment. He says it is worse with lifting and walking. He wears oxygen during the visit today and says he wears it for his back. He is not an ideal historian! 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 He takes oxycodone 30 mg twice a day as needed for pain. Dr. De Oliveira has been providing this for him. As is our practice, we pulled a [facility] prescription drug monitoring program profile on him and he has steadily renewed his prescriptions on a monthly basis for 90 tablets. This would calculate for him to a morphine milligram equivalent of around 135. He denies side effects, denies any lost or missing prescriptions, denies any opioid issues. He believes he has been on opioids for over 5 years and initially started by Dr. Gabino Tierney prior to his departure for [place]. Dr. De Oliveira continues his medication for him without incident. OTHER MEDICINES: Amiodarone, carvedilol, isosorbide, Pradaxa, torsemide, levothyroxine, omeprazole, baby aspirin, potassium chloride. ALLERGIES: None. PAST MEDICAL HISTORY: Positive for coronary artery bypass graft in 1995 and stents placed about 4-5 years ago. He has a history of diabetes and hypertension, although he treats his diabetes with diet only. 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 At that time, he had difficulty with his upper extremities and complained of weakness. He has [address] [address] PAIN MANAGEMENT CONSULTATION Name: ORLANDO RAMOS Room #: REG GEOFF Porter#: [id number] Admission: 07/20/19 Attend Phys: Wesly Salter MD Discharge: Date of : 43 Report #: [id number] had a fairly significant recovery and denies any current restrictions. SOCIAL HISTORY: He is retired and lives with his son. 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 He sells about 2000 cases per month! He denies use of tobacco, denies use of alcohol. REVIEW OF SYSTEMS: He reports general good health. He has a history of heart problems, likely congestive heart failure, although he denies that condition. Frequent urination, nocturia are also listed. He complains of memory loss and confusion, which is somewhat evident in his exam. PHYSICAL EXAMINATION: He is 5 feet 9 inches, 230 pounds, BMI of 33.9. GENERAL: He is very pleasant, again poor historian. VITAL SIGNS: Blood pressure 104/59, heart rate 60, respirations 14, O2 sat 97. Moves easily and independently from sitting to standing position and his gait is nonantalgic. HEENT: Within normal limits. Pupils are equal, round, reactive to light. EOMs are intact. Mucous membranes are moist. NECK: Supple with some restrictions in range of motion. CHEST: Clear. CARDIAC: Rhythm is regular today, although he has a history of atrial fibrillation. ABDOMEN: Soft and there are no palpable masses. No hepatosplenomegaly. He has minimal pain across his low back and good range of motion today. It does not reproduce pain in flexion, extension, rotation or qzno-fq-cyoj tilt. Straight leg raising bilaterally is normal without radiculopathy. Deep tendon reflexes are absent in knees and ankles. Sensation is intact. There is no focal weakness. X-rays are present that show mostly just age-related degenerative disk condition at L5-S1 and some facet changes. IMPRESSION: Lumbar spondylosis. At one point in time, he may have had radiculopathy, but today his symptoms are quiet. RECOMMENDATION: No recommendations at this point in time. He will continue to receive his medication from Dr. De Oliveira. I did review with him a bit about opioid concerns in today's World and importance of safeguarding his medication. I also informed that he is on a relatively high dose and he might be in his best interest to try and taper his dose to the lowest effective level. This could be done with 15 mg tablets or 10/325 mg oxycodone tablets to lower his MME. [address] [place] [address] PAIN MANAGEMENT CONSULTATION Name: ORLANDO RAMOS Room #: REG GEOFF Porter#: [id number] Admission: 07/20/19 Attend Phys: Wesly Salter MD Discharge: Date of : 43 Report #: [id number] MME patient's are under greater scrutiny. At the moment, though it does not appear that he is doing anything with his medication, it would be of concern. <ELECTRONICALLY SIGNED> By: Wesly Salter MD 07/23/19 1652 1709 1243 Wesly Salter MD /nt
== END ==
LOC: PAIN 06:31
DX: M47.816 Spondylosis without myelopathy or radiculopathy, lumbar region (principal); I10 Essential (primary) hypertension; E11.9 Type 2 diabetes mellitus without complications; Z95.5 Presence of coronary angioplasty implant and graft; Z79.899 Other long term (current) drug therapy

== ENCOUNTER 2019-08-17 18:52 | Inpatient (IN) | payer OTHER ==
[~2019-08-17] VITALS: Ht 175.3 cm; Wt 112.2 kg
--- NOTE | ~2019-08-17 | EKG ---
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 Specialist: RT : 1945 Requested By: Radha Guevara Order Number: [id number] MD: Measurements Intervals [place] Rate: 61 P: -5 PA: 125 QRS: 29 QRSD: 119 T: 179 QT: 432 QTc: 435 Interpretive Statements Sinus rhythm Paired ventricular premature complexes Aberrant complex Nonspecific intraventricular conduction delay Repol abnrm suggests ischemia, diffuse leads Compared to ECG 06/02/2019 07:08:18 Ventricular premature complex(es) now present Aberrant conduction of supraventricular beat(s) now present Possible ischemia now present Atrial-paced complex(es) or rhythm no longer present [email or web address] By: 1 1 Ep[facility], /EPI
[~2019-08-17 18:52] MED LIST changes: -CLOPIDOGREL75 MG PO; -LEVOTHYROXINE88 MCG PO; -PREDNISONE 20 M20 M1 PO
[2019-08-17 18:56] VITALS: BP 86/49
[2019-08-17 19:24] LABS: HEMOGLOBIN 9.3 gm/dL (14.0-18.0); RBC 3.19 mil/uL (4.50-6.00); WBC 4.5 thou/uL (4.0-11.0)
[2019-08-17 19:26] LABS: HEMATOCRIT 28.5 % (42.0-52.0); MCH 29.1 pg (26.0-34.0); MCHC 32.6 g/dL (28.0-37.0); MCV 89.5 fL (80.0-100.0); RDW 20.4 % (10.5-14.5)
[2019-08-17 19:32] LABS: POC CA IONIZED 4.4 mg/dL (4.5-5.3); POC CREATININE 2.7 mg/dL (0.6-1.3); POC HEMOGLOBIN 9.5 g/dL (14.0-18.0); POC POTASSIUM 4.6 mmol/L (3.5-5.1)
[2019-08-17 19:35] LABS: CALCIUM 9.2 mg/dL (8.5-10.1); CREATININE 2.9 mg/dL (0.7-1.3); POTASSIUM 4.5 mmol/L (3.5-5.1)
[2019-08-17 19:42] LABS: APTT 54.4 Seconds (24.5-32.8); INR 1.9; PROTIME 19.7 Seconds (9.3-11.4)
[2019-08-17 19:45] LABS: ALBUMIN 3.2 g/dL (3.4-5.0); MAGNESIUM 2.4 mg/dL (1.8-2.4); TOTAL BILIRUBIN 2.7 mg/dL (<0.1-1.0); TOTAL PROTEIN 6.4 g/dL (6.4-8.2); TROPONIN-I 0.26 ng/mL (<0.06)
[2019-08-17 20:21] LABS: ABSOLUTE NEUTROPHILS 3.5 thou/uL (1.4-8.2); NUCLEATED RBCS 1 /100WBC
[2019-08-17 20:25] LABS: ANISOCYTOSIS 2+; OVALOCYTES 1+; PLATELET COUNT 80 thou/uL (150-400); PLATELET ESTIMATE DECREASED; POIKILOCYTOSIS 2+; POLYCHROMASIA 1+; SCHISTOCYTES 1+; TOTAL BILIRUBIN 2.7 mg/dL (<0.1-1.0)
[2019-08-17 20:33] LABS: DIRECT BILIRUBIN 0.7 mg/dL (<0.1-0.3)
[2019-08-17 22:15] VITALS: BP 102/60
[2019-08-17 22:26] VITALS: BP 100/64
[2019-08-17 23:00] VITALS: BP 112/66
[2019-08-18] VITALS (11 sets, daily range): BP systolic 100–117; BP diastolic 60–72
[2019-08-18 01:28] LABS: HEMOGLOBIN 8.7 gm/dL (14.0-18.0); WBC 4.2 thou/uL (4.0-11.0)
[2019-08-18 01:30] LABS: MCH 29.1 pg (26.0-34.0); MCHC 32.3 g/dL (28.0-37.0); MCV 90.2 fL (80.0-100.0); RDW 20.4 % (10.5-14.5)
[2019-08-18 01:33] LABS: URINE BILIRUBIN NEGATIVE (Negative); URINE BLOOD 1+ (Negative); URINE CLARITY CLEAR; URINE COLOR YELLOW; URINE GLUCOSE-RANDOM* NEGATIVE (Negative); URINE KETONES NEGATIVE (Negative); URINE LEUKOCYTES-REFLEX NEGATIVE (Negative); URINE NITRITE-REFLEX NEGATIVE (Negative); URINE PROTEIN (DIPSTICK) TRACE (Negative)
[2019-08-18 01:37] LABS: CHOLESTEROL 105 mg/dL (<200); HDL CHOLESTEROL 40 mg/dL (>40); LDL CHOLESTEROL 53 mg/dL (<100); TC:HDL 2.6 Ratio (Not establshd); TRIGLYCERIDE 63 mg/dL (<150); VLDL 13 mg/dL (<40)
[2019-08-18 01:40] LABS: SERUM ASSESSMENT Clear
[2019-08-18 01:45] LABS: CALCIUM 8.6 mg/dL (8.5-10.1); CREATININE 2.9 mg/dL (0.7-1.3); POTASSIUM 4.3 mmol/L (3.5-5.1)
[2019-08-18 01:50] LABS: SQUAMOUS 0-3 Few /LPF (0-3); URINE WBC-REFLEX 0-5 Rare /HPF (0-5)
[2019-08-18 01:50] LABS: % SATURATION 13 % (20-39); IRON 38 ug/dL (65-175); TIBC 283 ug/dL (250-450)
[2019-08-18 01:51] LABS: BACTERIA-REFLEX 1-9 Few /HPF (None Seen); CRYSTALS None Seen /LPF (None Seen); HYALINE CASTS >10 Many /LPF (None Seen); MUCUS 0-3 Light strn/LPF (None Seen)
[2019-08-18 02:17] LABS: FOLIC ACID 23.7 ng/mL (8.6-58.9)
[2019-08-18 02:43] LABS: APTT 55.1 Seconds (24.5-32.8); INR 1.7; PROTIME 17.4 Seconds (9.3-11.4)
--- NOTE | 2019-08-18 05:01 | NUR ---
PT WAS AN ER ADMIT. PT CAME TO THE FLOOR AT ABOUT 2300. PT WAS ADMITTED WITH CHEST PAIN. ON ARRIVAL PT HAD NO COMPLIANTS OF CHEST PAIN. PT IS ALERT AND ORIENTED WITH NO FAMILY AT BEDSIDE. ADMISSION ASSESSMENT AND EDUCATION COMPLETED. PT IS SEEN BY ON-CALL NURSE PRACTITIONER. SCHEDULED MEDS ADMINISTERED TO PT. REPEAT TROPONIN ELEVATED. CARDIOLOGY NOTIFIED. PT IS PLACED ON HEPARIN DRIP AND KEPT NPO. PT STARTS COMPLAINING OF CHEST PAIN, NITRO ADMINISTERED TO PT X3, MORPHINE ALSO ADMINISTERED, PT DOES NOT EXPRESS ANY RELIEVE JUST YET. CONTINUE TO MONITOR PATIENT.
[2019-08-18 09:56] LABS: OBSERVED RETIC COUNT 2.38 % (0.6-2.6)
[2019-08-18 10:09] LABS: ALBUMIN 3.1 g/dL (3.4-5.0); DIRECT BILIRUBIN 0.6 mg/dL (<0.1-0.3); TOTAL PROTEIN 6.2 g/dL (6.4-8.2)
--- NOTE | 2019-08-18 13:31 | CATHLAB ---
[facility] [address] [place] [address] INVASIVE PROCEDURE REPORT Name: ORLANDO RAMOS Room #: 207-P ADM IN ..#: [id number] Admission: 08/17/19 Attend Phys: Dougie Lam Discharge: Date of : 43 Report #: [id number] THIS REPORT FOR: //name// APPROVED REPORT Study performed: 08/18/2019 09:14:41 Patient Details Patient Status: In-Patient Room #: 207 The patient is a 74 year-old male Event Personnel Tristan Bowers Education Administrative Assistant, Cynthia Siddiqi RTR, TRUST ADVISOR Monitor, Danielle May RN RN, Maryanne Schneider RTR Scrub Procedures Performed Art Access - L radial artery Coronaries Angiography and Bypass Grafts 198865 CORCABG 55113 Initial Mod Sed Same Phys/QHP Gr5y 493257 47054 Mod Sed Same Phys/QHP Ea 829913 SOO Revasc Graft Single OM C9604 SVGREVSING Indication Non-STEMI (>6 hrs to = 12 hrs), Dyspnea, Unstable angina , Cardiomyopathy, Chest pain Risk Factors Hypercholesterolemia, Coronary Artery DiseaseHypertensionRenal Failure, Diabetes Previous Procedures/Diagnoses Previous CABGPrevious PCI Procedure Narrative The Left Wrist^ was infiltrated with 1% Lidocaine subcutaneous anesthesia. A TRANSRADIAL SLENDER 6F GLIDESHEATH KIT #[id number] sheath was inserted into the Left Radial Artery^. Coronary angiography was performed using coronary diagnostic catheters. There was no hematoma. Hemostasis obtained with VascBand. Intraoperative Conscious Sedation Sedation start time: 09:27 Case end Time: 10:35 Fentanyl 50 mcg Versed 2 mg Fluoro Time: 19.90 minutes [facility] [address] [place] [address] INVASIVE PROCEDURE REPORT Name: ORLANDO RAMOS Room #: 207-P [facility].#: [id number] Admission: 08/17/19 Attend Phys: Dougie Lam Discharge: Date of : 43 Report #: [id number] Dose: DAP 45031.00 cGycm2 3953 mGy Contrast Type and Amount: Visipaque 200 ml Coronary Angiography The patient's coronary anatomy is right dominant. [place] Artery Percent Stenosis Previous angiograms have revealed total occlusions involving the proximal LAD, proximal left circumflex artery and proximal RCA. Diagnostic Cath LAD There is a patent LARSEN graft, with an end-to-side anastomosis to the mid LAD. The mid/distal segment of the LAD has severe diffuse disease. The septal perforators supply collaterals to the PDA. There Diagonal 1 The vein graft to the first diagonal artery is occluded at the ostium. Circumflex There is a SVG with an end-to-side anastomosis to OM1. Within the proximal segment of the SVG, there is a severe occlusion, 99% with TOBIAS 2 blood flow down the remaining segments of the vein graft. Right Coronary The vein graft to the PDA is occluded at the ostium. Left Ventriculography Left Ventriculography was not performed. Hemodynamics The aortic pressure is 109/60 mmHg with a mean of 79 mmHg. PCI Technique Lesion Percutaneous coronary intervention was performed on the proximal segment of the SVG to OM1. The lesion stenosis prior to intervention was 99% with TOBIAS 2 flow. A LAUNCHER 6FR AL75 #[id number] Guide Catheter was used to engage the ostium. A Luge Wire .014 x 182CM #[id number] Interventional Guidewire was used to cross the lesion. BALLOON DILATION A Balloon catheter TREK RX 2.25 X 12 #[id number] was inserted and inflated up to 8atm for 16seconds. Additional Inflation: 16atm for 16seconds. Additional Inflation: 16atm for 9seconds. STENT DEPLOYMENT A drug-eluting stent RESOLUTE EMA RX 4.0 X 18 #[id number] was inserted and inflated up to 14atm for 35seconds. [address] [address] INVASIVE PROCEDURE REPORT Name: ORLANDO RAMOS Room #: 207-P [facility] IN ..#: [id number] Admission: 08/17/19 Attend Phys: Dougie Lam Discharge: Date of : 43 Report #: [id number] Final angiography reveals 5 % stenosis with TOBIAS 3 flow. Conclusion 1. Successful insertion of a drug-eluting stent into the proximal segment of the SVG to OM1. 2. There is a patent LARSEN graft with an end-to-side anastomosis to the mid LAD segment. The distal LAD has severe diffuse disease. The septal perforators supply collateral blood flow to the PDA. 3. Recommend aggressive risk factor management and dual antiplatelet therapy. <ELECTRONICALLY SIGNED> By: Tristan Bowers MD 08/18/19 1331 133 133 Tristan Bowers MD /INF
--- NOTE | 2019-08-18 16:42 | NUR ---
PT ALERT AND ORIENTED. HAD CARDIAC CATH THIS AM. RIGHT WRIST INCISION C/DI. NO HEMATOMA NOTED. POST OP INSTRUCTIONS GIVEN TO PT. PT VERBERILSED UNDERSTANDING. HAD 1X EPISODE OF CHEST PAIN. CARDIOLOGY NOTIFIED. ORDERS NOTED. NO CARDIAC DISTRESS NOTED. WILL CONTINUE TO MONITOR.
--- NOTE | 2019-08-18 17:00 | EKG ---
[place] [address] [place] [address] ELECTROCARDIOGRAM REPORT Name: ORLANDO RAMOS Room #: 207-P ADM IN M.R.#: [id number] Admission: 08/17/19 Attend Phys: Dougie Todd Discharge: Date of : 43 Report #: [id number] THIS REPORT FOR: //name// [facility] ED Test Date: 2019-08-17 Test Time: 18:51:23 Pat Name: ORLANDO RAMOS Department: Room: 207 Gender: M Membership Manager: MARVIN : 1945 Requested By: Wilner Murphy Order Number: [id number] MD: Manjeet Winters Measurements Intervals [place] Rate: 99 P: 153 FL: 134 QRS: 26 QRSD: 139 T: 176 QT: 402 QTc: 516 Interpretive Statements Sinus or ectopic atrial rhythm Left bundle branch block Baseline wander in lead(s) V2,V3 Compared to ECG 06/02/2019 07:08:18 Left bundle-branch block now present Electronically Signed On 08-18-2019 17:00:18 FIRE MARSHAL REFINERY by Manjeet Winters [email or web address] <ELECTRONICALLY SIGNED> By: Manjeet Winters MD, [facility] 08/18/19 8770 50 50 Manjeet Winters MD, [facility] /EPI
--- NOTE | 2019-08-18 17:04 | EKG ---
[address] [email or web address] [address] ELECTROCARDIOGRAM REPORT Name: ORLANDO RAMOS Room #: 207-P ADM IN M.R.#: [id number] Admission: 08/17/19 Attend Phys: Dougie Todd Discharge: Date of : 43 Report #: [id number] THIS REPORT FOR: //name// [facility] ED Test Date: 2019-08-18 Test Time: 06:13:48 Pat Name: ORLANDO RAMOS Department: Room: 207 P Gender: M Art History Professor: KITTY : 1945 Requested By: Brissa Elizabeth Order Number: [id number] MD: Manjeet Winters Measurements Intervals [place] Rate: 60 P: 3 ND: 114 QRS: 26 QRSD: 117 T: 173 QT: 449 QTc: 449 Interpretive Statements Sinus rhythm Borderline short ND interval Nonspecific intraventricular conduction delay Repol abnrm suggests ischemia, diffuse leads Compared to ECG 06/02/2019 07:08:18 Left bundle branch block is no longer present Electronically Signed On 08-18-2019 17:04:01 BEAM WORKER by Manjeet Winters [email or web address] <ELECTRONICALLY SIGNED> By: Manjeet Winters MD, [facility] 08/18/19 1544 2 Manjeet Winters MD, [facility] /EPI
--- NOTE | 2019-08-18 17:05 | EKG ---
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 Pilot: RT : 1945 Requested By: Tristan Bowers Order Number: [id number] MD: Manjeet Winters Measurements Intervals [place] Rate: 61 P: -5 GA: 125 QRS: 29 QRSD: 119 T: 179 QT: 432 QTc: 435 Interpretive Statements Sinus rhythm Paired ventricular premature complexes Nonspecific intraventricular conduction delay Repol abnrm suggests ischemia, diffuse leads Compared to ECG 06/02/2019 07:08:18 Ventricular premature complex(es) now present Electronically Signed On 08-18-2019 17:05:19 SAFETY ASSOCIATE by Manjeet Winters [email or web address] <ELECTRONICALLY SIGNED> By: Manjeet Winters MD, [facility] 08/18/19 4745 0722 1 Manjeet Winters MD, [facility] /EPI
--- NOTE | 2019-08-18 17:08 | EKG ---
[address] [email or web address] [address] ELECTROCARDIOGRAM REPORT Name: ORLANDO RAMOS Room #: 207-P ADM IN M.R.#: [id number] Admission: 08/17/19 Attend Phys: Dougie Todd Discharge: Date of : 43 Report #: [id number] THIS REPORT FOR: //name// [facility] Test Date: 2019-08-18 Test Time: 13:41:18 Pat Name: ORLANDO RAMOS Department: Room: 207 P Gender: M Correctional Treatment Specialist: Reggie DICK : 1945 Requested By: Tristan Bowers Order Number: [id number] MD: Manjeet Winters Measurements Intervals [place] Rate: 60 P: 11 PA: 91 QRS: 29 QRSD: 117 T: 179 QT: 463 QTc: 463 Interpretive Statements Atrial-paced complexes Nonspecific intraventricular conduction delay Repol abnrm suggests ischemia, diffuse leads Compared to ECG 06/02/2019 07:08:18 Premature ventricular complexes are no longer present Electronically Signed On 08-18-2019 17:08:34 ELECTRIFICATION ADVISER by Manjeet Winters [email or web address] <ELECTRONICALLY SIGNED> By: Manjete Winters MD, [facility] 08/18/19 1708 1341 134 Manjeet Winters MD, [facility] /EPI
[2019-08-18 19:10] LABS: IgG 602 mg/dL (700-1600)
[2019-08-18 21:07] LABS: HEMATOLOGY COMMENTS Note: (()); HEMOGLOBIN 8.4 g/dL (13.0-17.7)
[2019-08-19 00:05] LABS: GLYCOHEMOGLOBIN (HGB A1C) 6.2 % (4.8-5.6)
--- NOTE | 2019-08-19 05:08 | NUR ---
ASSUMED PT CARE AT 1900. PT IS ALERT AND ORIENTED. LAYING IN BED. NO SIGN OF DISTRESS NOTED. PT IS STABLE. LEFT HAND INTACT, BRUISING NOTED ON LEFT WRIST. ASSESSMENT COMPLETED AND CHARTED. VUTAL SIGNS STABLE. SCHEDULED MEDS ADMINISTERED TO PT. DENIES ANY PAIN, NO FURTHER NEEDS REQUESTED AT THIS TIME.
[2019-08-19 05:48] VITALS: BP 116/62
[2019-08-19 05:58] LABS: HEMATOCRIT 24.6 % (42.0-52.0); MCHC 32.4 g/dL (28.0-37.0); MCV 89.4 fL (80.0-100.0); PLATELET COUNT 62 thou/uL (150-400); RBC 2.75 mil/uL (4.50-6.00); RDW 20.7 % (10.5-14.5); WBC 5.2 thou/uL (4.0-11.0)
[2019-08-19 06:16] LABS: ALBUMIN 2.3 g/dL (3.4-5.0); TOTAL BILIRUBIN 0.7 mg/dL (<0.1-1.0); TROPONIN-I 0.18 ng/mL (<0.06)
[2019-08-19 06:34] LABS: CALCIUM 8.4 mg/dL (8.5-10.1); CREATININE 2.6 mg/dL (0.7-1.3); POTASSIUM 3.9 mmol/L (3.5-5.1); TOTAL PROTEIN 5.4 g/dL (6.4-8.2)
[2019-08-19 06:45] LABS: ABSOLUTE NEUTROPHILS 3.7 thou/uL (1.4-8.2); ANISOCYTOSIS 2+; METAMYELOCYTES 1 %; NUCLEATED RBCS 2 /100WBC; OVALOCYTES 1+; PLATELET ESTIMATE DECREASED; POIKILOCYTOSIS 2+; POLYCHROMASIA 1+; SCHISTOCYTES 1+
[2019-08-19 07:10] LABS: HAV IgM AB (ANTI-HAV IgM) Negative (Negative); HEPATITIS B SURFACE AG Negative (Negative); HEPATITIS C VIRUS AB <0.1 (0.0-0.9)
[2019-08-19 07:34] VITALS: BP 117/67
--- NOTE | 2019-08-19 08:33 | HC ---
[facility] [place] [address] CONSULTATION Name: ORLANDO RAMOS Room #: 207-P [facility] IN .R.#: [id number] Admission: 08/17/19 Attend Phys: Dougie Todd Discharge: Date of : 43 Report #: [id number] THIS REPORT FOR: //name// CC: Manjeet Winters MD [facility] Dougie Meza DO REQUESTING PHYSICIAN: Manjeet Winters MD REASON FOR CONSULTATION: Thrombocytopenia and anemia. HISTORY OF PRESENT ILLNESS: The patient is a very pleasant 74-year-old male admitted with a history of arm pain, thought related to new coronary artery disease progression and perhaps an evaluation. On admission, his platelet count was 80,000. Note in the past, he had not been this low. His most recent platelet count before this had been back in 05/30/2019, at that time it was 162. On 08/17/2019, day of admission was 80,000. Note that this was done before heparin. Today, 08/18/2019, it was 67,000. During the same time, his white count has been in the 4245 range, which is not too far off baseline. Hemoglobin has been lower in the past. In January 2019, it was 10.7; in 2017, it was 11.5; in May 2019, it was 9.2; on admission 9.3; today 8.7 after fluids and hydration. Note that during the same time, his MCV has been stable in the 80-90 range. During this admission on admit recent lab, note that the patient has iron slightly low at 38, percent saturation slightly low at 13%, TIBC adequate at 283. Total bilirubin was 2.7 on admit, note that is higher than usual for this patient usually his and also during the same time, his transaminases are normal. Usually, his total bilirubin is in the past 1.3 range in May or 0.8 back in April 2016. Direct bilirubin this time was 0.7. Also on lab, note that his RDW is a little bit higher than usual. REVIEW OF SYSTEMS: The patient denies any recent headache, any mouth sores, trouble swallowing, any trouble moving his air, any wheezing, any coughing, any blood in his urine or stool or spitting up of blood or nosebleeds. He does have ecchymosis from blood draws. He says he also gets minor bruising when he bumps into things, but he has also been on dabigatran since 2011. Of note, note that his aPTT was normal, before that time it has been slightly elevated, most likely due to that medication since that time on a chronic basis. He denies any nausea or vomiting. Does have a history of a colonoscopy some 15 years ago, history of an EGD about the same time. Says he has been on acid kamilah. Since that time, he has also put the head of his bed up on a 2/4 and he no longer has difficulties. No recent weight change. No new arm or leg swelling by his description. [address] [address] CONSULTATION Name: ORLANDO RAMOS Karin Room #: 207-P ADM IN ..#: [id number] Admission: 08/17/19 Attend Phys: Dougie Todd Discharge: Date of : 43 Report #: [id number] The patient denies any alcohol or tobacco for some 15-20 years. Also, denies any recent quinine usage or viral illnesses. PAST MEDICAL HISTORY: Notable for atrial fibrillation, chronic kidney disease, anemia, also history of congestive heart failure, also his AICD in situ, history of coronary artery disease, I believe he has had with stents, history of hypertension, history of hyperlipidemia, history of pancreatitis in the past, history of varicose veins not treated, history of diabetes, not on any therapy. Hypothyroidism. FAMILY HISTORY: There is longevity on his mother's side. No cancer or blood issues. He had three sisters, one had dementia. He has 4 children. No health issues. SOCIAL HISTORY: He is retired, used to work, I think he said for [employer]. 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 CURRENT MEDICATIONS: At this time in the hospital include atorvastatin 40 mg at bedtime p.o., isosorbide mononitrate 60 mg daily p.o., flu vaccine to be given once, docusate 100 b.i.d., amiodarone 200 b.i.d. p.o., aspirin 81 mg daily, fluticasone 2 sprays daily each nasal, ascorbic acid, vitamin C 500 mg daily, carvedilol 25 mg b.i.d., pantoprazole 20 daily p.o., levothyroxine 88 mcg daily, morphine p.r.n., Zosyn 3.375 IV q. 8, MiraLax 17 grams daily p.r.n., insulin on a sliding scale, nitroglycerin p.r.n., Zofran p.r.n. and Venofer 200 mg daily IV x5. PHYSICAL EXAMINATION: GENERAL: The patient appears his stated age. VITAL SIGNS: Recent height is reported as 5 feet 9 inches, which is 152.4 cm, ____ reported 175. We will need to calculate that again. Also, weight is reported as 242.4 pounds, which is 109.9 kilograms. Note that weight is up about 12 pounds from July and May of this year. Blood pressure recently 115/72, O2 sat 94% in the left arm, respirations 18, pulse 60, afebrile at 97.6. MOOD: The patient is alert and pleasant, conversant, appears to be a reliable historian. HEENT: Oropharynx clear. Face is symmetrical. LUNGS: Mostly clear anteriorly. HEART: Appears regular rate, though we understand he has atrial fibrillation. LYMPHATICS: No enlarged lymph nodes in the supraclavicular, cervical, axillary or inguinal region. ABDOMEN: Very obese. No palpable organomegaly, but it would be honestly hard to tell. EXTREMITIES: Without clubbing or cyanosis. There may be some trace edema. IMAGING: Done this admit includes CAT scan without any finding of [facility] [address] [place] [address] CONSULTATION Name: ORLANDO RAMOS Room #: 207-P ADM IN [facility]#: [id number] Admission: 08/17/19 Attend Phys: Dougie Todd Discharge: Date of : 43 Report #: [id number] lymphadenopathy or hepatosplenomegaly. Also, ultrasound does not show any bile duct abnormalities. ASSESSMENT AND PLAN: 1. Thrombocytopenia, 80 yesterday, 67 today, without any obvious bleeding. No new medications with TSH reasonable, B12 and folate normal. Note the iron may be slightly low. He has already been written for IV iron, which I think is very reasonable. We will check immature platelet fraction and peripheral smear to see if this might suggest consumption process. We will also check ultrasound of lower extremities. Note that heparin antibody is pending. 2. Anemia. We will check even if the bilirubin is elevated. LDH is only slightly elevated, I doubt hemolysis. Iron may be low. Agree with IV iron, we will also consult GI. His last colonoscopy and EGD was 15+ years ago. We will also check an erythropoietin level and retic count if this is probably related somewhat to his renal insufficiency. 3. Renal insufficiency, creatinine higher than it has been. I think it is in the mid 3 range. Suspect this is contributing to his anemia. 4. Elevated total bilirubin. CT and ultrasound, so no issues or masses. Doubt hemolysis could be related to heart failure. We will consult GI. Note that haptoglobin is pending. 5. Atrial fibrillation, on dabigatran and meds for rate control. 6. Elevated APTT, most likely related to dabigatran since 2011. 7. Recent chest pain and history of coronary artery disease per CV. Note that they may wish to study and their options may be somewhat limited with his multiple other medical issues. 8. Heart failure. Defer meds to others. 9. AICD in situ. Defer to others. 10. History of hypertension, meds per others. 11. History of varicose veins, not needing therapy. 12. Hyperglycemia/diabetes. Defer management to others. 13. Hypothyroid, on thyroid replacement. <ELECTRONICALLY SIGNED> By: Wesly Bravo MD 08/19/19 0833 0908 1229 Wesly Bravo MD /nt
[2019-08-19 11:13] VITALS: BP 99/56
--- NOTE | 2019-08-19 13:10 | NUR ---
Met with patient and at bedside. patient resides at home with spouse. He uses no assistive device. Steps to enter home and inside home. he reports wears oxygen at home at night via [facility]. He has a CPAP machine but reports no always compliant with machine. Prev dc home with no needs. casemgt following.
[2019-08-19 13:12] LABS: CERULOPLASMIN 29.7 mg/dL (16.0-31.0)
[2019-08-19 16:33] VITALS: BP 136/75
--- NOTE | 2019-08-19 16:52 | NUR ---
ASSUMMED PT CARE AT APPROXIMATELY 0700. A&O X4. ASSESSMENT CHARTED. FALL PRECAUTIONS IN PLACE. PT DENIES HAVING CHEST PAIN. PT DENIES HAVING SOB. PT DENIES HAVING ACUTE PAIN. PT UP AD CONSUELO. PT STEADY/INDEPENDENT WHEN AMBULATING. PT AND FAMILY EDUCATED ABOUT POC. PT AND FAMILY STATED UNDERSTANDING AND DENIED HAVING FURTHER QUESTIONS. VITAL SIGNS STABLE. BLOOD SUGARS STABLE. PT COMFORTABLE IN BED. PT DENIES HAVING FURTHER CONCERNS. NOTIFIED DR OF LOW HGB LEVEL. STATED TO CONTINUE TO MONITOR PT AT THIS TIME.
[2019-08-19 20:20] VITALS: BP 120/68
[2019-08-20 04:03] VITALS: BP 136/84
--- NOTE | 2019-08-20 04:32 | NUR ---
ASSUMED PT CARE AT 1900. PT UP AD CONSUELO AND VSS.PT C/O NO PAIN OR SOB. PT WANTS TO GO HOME. MEDICATIONS ADMINISTERED PER EMAR. WILL CONTINUE TO MONITOR PT PER POC. PT IS PROGRESSING TOWARDS DISCHARGE.
[2019-08-20 05:45] LABS: HEMATOCRIT 25.6 % (42.0-52.0); HEMOGLOBIN 8.3 gm/dL (14.0-18.0)
[2019-08-20 06:00] LABS: ALBUMIN 2.7 g/dL (3.4-5.0); CREATININE 2.1 mg/dL (0.7-1.3); PHOSPHORUS 3.8 mg/dL (2.5-4.9); POTASSIUM 4.1 mmol/L (3.5-5.1)
[2019-08-20 06:08] LABS: ALBUMIN 2.8 g/dL (3.4-5.0); DIRECT BILIRUBIN 0.6 mg/dL (<0.1-0.3); TOTAL BILIRUBIN 1.4 mg/dL (<0.1-1.0); TOTAL PROTEIN 5.7 g/dL (6.4-8.2)
[2019-08-20 07:09] LABS: ANA INTERPRETATION Negative (Negative)
--- NOTE | 2019-08-20 07:41 | HC ---
[facility] [place] [address] CONSULTATION Name: ORLANDO RAMOS Room #: 207-P [facility] IN .R.#: [id number] Admission: 08/17/19 Attend Phys: Dougie Todd Discharge: Date of : 43 Report #: [id number] THIS REPORT FOR: //name// CC: Manjeet Todd REASON FOR CONSULTATION: Elevated creatinine. REASON FOR PRESENTATION: Shortness of breath. HISTORY OF PRESENT ILLNESS: A 74-year-old with extensive past medical history including coronary artery disease post-4 stents, chronic kidney disease, cardiomyopathy with an ejection fraction of around 40%, status post coronary artery bypass graft. He presented yesterday with shortness of breath and significantly elevated troponins up to 29. Creatinine on presentation was above his baseline and reported to be 2.9. It does look like that the patient has a history of chronic kidney disease. Over the last couple of years, his creatinine has been anywhere from 1.5 to 2.3 with the most recent value in 05/2019 of 1.5. He tells me that he does not follow up with a kidney specialist. He does not recall if he has ever seen a kidney doctor. He was admitted and was taken to the blood bank laboratory technologist where he had a cardiac catheterization and ended up having a drug-eluted stent in the proximal segment of the graft to the obtuse marginal. The patient has received a CT chest, abdomen and pelvis without contrast prior to his cardiac catheterization. Creatinine is now down to 2.6. He is followed by Hematology for thrombocytopenia. He is also followed by GI for anemia. He also had some issues with liver enzymes mandating a Hepatology consultation. PAST MEDICAL HISTORY: Extensive and includes the followin. Coronary artery disease. 2. Post-CABG. 3. Atrial fibrillation. 4. Post pacemaker. 5. Hyperlipidemia. 6. Diabetes mellitus. 7. AAA with stent graft repair. 8. Chronic kidney disease with a baseline creatinine of around 1.6 to 1.7. REVIEW OF SYSTEMS: GENERAL: No fever or chills. CARDIOVASCULAR: As per the history of present illness. PULMONARY: Significant for shortness of breath. No cough or hemoptysis. GASTROINTESTINAL: No nausea or vomiting. GENITOURINARY: No frequency, no urgency. SKIN: No rash or ulcerations. MEDICATIONS: [address] [address] CONSULTATION Name: ORLANDO RAMOS Room #: 207-P [facility] IN [facility].#: [id number] Admission: 08/17/19 Attend Phys: Dougie Todd Discharge: Date of : 43 Report #: [id number] 1. Currently, the patient is on amiodarone. 2. Nitrate. 3. Carvedilol. 4. Torsemide. 5. Levothyroxine. 6. Pravastatin. FAMILY HISTORY: Significant for hypertension. PHYSICAL EXAMINATION: GENERAL: He is alert, oriented. VITAL SIGNS: Blood pressure is 116/62, pulse rate is 61, temperature is 36.7. HEAD AND NECK: No jugular venous distention. CHEST: Decreased air entry bilaterally. CARDIOVASCULAR: No rub detected. ABDOMEN: Soft, nontender. EXTREMITIES: Lower extremities, +1 edema. LABORATORY DATE: Laboratory values from today reviewed. Creatinine is down to 2.6. Hemoglobin is 8, platelet is 62,000. IMPRESSION AND PLAN: 1. Acute kidney injury. 2. Chronic kidney disease. 3. Status post cardiac catheterization with a stent placement placed of the SVG to obtuse marginal branch #1. 4. Known coronary artery disease. 5. Recent non-ST elevated myocardial infarction. 6. Status post coronary artery bypass graft. 7. Status post AICD placement. 8. The patient received appropriate care for his non-ST elevated TX. Creatinine seems to be improving and is trending down. 9. Discontinue IV fluid. 10. Continue to address his risk factors. 11. Avoid nephrotoxins. Hopefully, he will get through his cardiac catheterization without any further complications. <ELECTRONICALLY SIGNED> By: Ezra Mesa MD 08/20/19 0741 0718 1327 Ezra Mesa MD /nt
[2019-08-20 07:55] VITALS: BP 132/72
[2019-08-20 08:32] LABS: HEMOGLOBIN 8.3 gm/dL (14.0-18.0)
[2019-08-20 08:35] LABS: HEMATOCRIT 26.2 % (42.0-52.0); MCH 28.8 pg (26.0-34.0); MCHC 31.7 g/dL (28.0-37.0); MCV 90.8 fL (80.0-100.0); RBC 2.88 mil/uL (4.50-6.00); RDW 20.7 % (10.5-14.5); WBC 5.5 thou/uL (4.0-11.0)
[2019-08-20 11:35] VITALS: BP 133/78
[2019-08-20 16:20] VITALS: BP 126/81
--- NOTE | 2019-08-20 18:24 | NUR ---
ASSUMMED PT CARE AT APPROXIMATELY 0700. PT A&O X4. ASSESMENT CHARTED. FALL PRECAUTIONS IN PLACE. PT DENIES HAVING CHEST PAIN. PT DENIES HAVING SOB. PT DENIES HAVING ACUTE PAIN. VITAL SIGNS STABLE. BLOOD SUGARS STABLE. PT AND FAMILY EDUCATED ABOUT POC. PT AND FAMILY STATED UNDERSTANDING AND DENIED HAVING FURTHER QUESTIONS. PT UP AD CONSUELO. PT STEADY/INDEPENDENT. PT COMFORTABLE IN BED. PT DENIES HAVING FURTHER CONCERNS.
[2019-08-20 20:01] VITALS: BP 137/76
[2019-08-21] VITALS (7 sets, daily range): BP systolic 119–153; BP diastolic 65–89
[2019-08-21 03:49] LABS: ALBUMIN 2.7 g/dL (3.4-5.0); CALCIUM 9.1 mg/dL (8.5-10.1); CREATININE 2.2 mg/dL (0.7-1.3); PHOSPHORUS 3.7 mg/dL (2.5-4.9); POTASSIUM 4.4 mmol/L (3.5-5.1)
[2019-08-21 04:35] LABS: HEMATOCRIT 26.7 % (42.0-52.0); HEMOGLOBIN 8.6 gm/dL (14.0-18.0); MCH 29.2 pg (26.0-34.0); MCHC 32.2 g/dL (28.0-37.0); MCV 90.6 fL (80.0-100.0); PLATELET COUNT 81 thou/uL (150-400); RBC 2.94 mil/uL (4.50-6.00); RDW 20.5 % (10.5-14.5); WBC 7.8 thou/uL (4.0-11.0)
--- NOTE | 2019-08-21 05:11 | NUR ---
ASSUMED PT CARE AT 1900. PT WAS AOX4 AND VSS WITH NO C/O OF PAIN OR SOB. PT STATED HIS DESIRE TO GO HOME. PT WAS STILL UNABLE TO GAIN SATISFACTORY SLEEP EVEN WITH SLEEP AID PROVIDED. PT IS UP AD CONSUELO AND STEADY ON FEET. PT IS PROGESSING TOWARDS POC AND DISCHARGE. WILL CONTINUE TO MONITOR.
[2019-08-21] MEDS ORDERED: IMDUR 60 MG TAB60 M1 PO (07:56)
[2019-08-21] MEDS ORDERED: CLOPIDOGREL75 MG PO (07:56)
[2019-08-21] MEDS ORDERED: PREDNISONE 20 M20 M1 PO (07:57)
[2019-08-21] MEDS ORDERED: LEVOTHYROXINE88 MCG PO (07:57)
[2019-08-21 08:44] LABS: ABSOLUTE NEUTROPHILS 6.3 thou/uL (1.4-8.2); NUCLEATED RBCS 1 /100WBC
[2019-08-21 08:46] LABS: ANISOCYTOSIS 2+; LARGE PLATELETS FEW; OVALOCYTES 2+; PLATELET ESTIMATE SLIGHTLY DECREASED; POLYCHROMASIA SLIGHT
--- NOTE | 2019-08-21 12:07 | EKG ---
[address] [address] ELECTROCARDIOGRAM REPORT Name: ORLANDO RAMOS Room #: 207-P ADM IN M.R.#: [id number] Admission: 08/17/19 Attend Phys: Dougie Todd Discharge: Date of : 43 Report #: [id number] THIS REPORT FOR: //name// [facility] Test Date: 2019-08-19 Test Time: 08:02:15 Pat Name: ORLANDO RAMOS Department: Room: 207 P Gender: M Telesales Team Leader: Puma CEDENO : 1945 Requested By: Tristan Bowers Order Number: [id number] MD: Tristan Bowers Measurements Intervals [place] Rate: 60 P: [place]: 75 QRS: 33 QRSD: 117 T: 175 QT: 459 QTc: 459 Interpretive Statements Atrial-paced rhythm Nonspecific intraventricular conduction delay Repol abnrm suggests ischemia, diffuse leads Compared to ECG 08/18/2019 13:41:18 No significant changes Electronically Signed On 08-21-2019 12:07:40 MANAGER GARAGE by Tristan Bowers [email or web address] <ELECTRONICALLY SIGNED> By: Tristan Bowers MD 08/21/19 1207 0802 1 MD SHAHEEN Rivera
--- NOTE | 2019-08-21 13:21 | NUR ---
Pt will need updated oxygen with portable system through [email or web address]. He only has noc at this time. DC brand planner to fax exercise ox and script to [email or web address]. They will deliever a portable to the pt for the ride home. No other cm interventions indicated at this time.
--- NOTE | 2019-08-21 14:31 | NUR ---
FAXED SCRIPT AND PROG. NOTES TO [facility] FOR CONT HOME O2. SPOKE WITH LONNIE IN INTAKE SHE RECEIVED SCRIPT AND FORWARD IT TO THE [place], [place] OFFICE AND THEY WILL F/U WITH PT AT HOME.
== END 2019-08-21 18:11 | disposition home or self-care (01) | DRG 246 ==
LOC: ER 18:52 → EROBS 20:08 → 2N 20:08 → ENTRNSPT 08-21 17:11 → 2N 08-21 18:11
PROVIDERS: Emergency Medicine; Hospitalist; Internal Medicine; Internal Medicine Cardiovascular Disease; Internal Medicine Gastroenterology; Internal Medicine Hematology & Oncology; Nurse Practitioner; Nurse Practitioner Acute Care; ADMIT Hospitalist
PROC: B211YZZ Fluoroscopy of Multiple Coronary Arteries using Other Contrast (ICD-10-PCS; principal; 2019-08-17)
PROC: 027034Z Dilation of Coronary Artery, One Artery with Drug-eluting Intraluminal Device, Percutaneous Approach (ICD-10-PCS; principal; 2019-08-17)
PROC: B213YZZ Fluoroscopy of Multiple Coronary Artery Bypass Grafts using Other Contrast (ICD-10-PCS; principal; 2019-08-17)
PROC: B218YZZ Fluoroscopy of Left Internal Mammary Bypass Graft using Other Contrast (ICD-10-PCS; principal; 2019-08-17)
PROC: 4A023N7 Measurement of Cardiac Sampling and Pressure, Left Heart, Percutaneous Approach (ICD-10-PCS; principal; 2019-08-17)
DX: I21.4 Non-ST elevation (NSTEMI) myocardial infarction (principal); I50.23 Acute on chronic systolic (congestive) heart failure; N17.9 Acute kidney failure, unspecified; J98.11 Atelectasis; I13.0 Hypertensive heart and chronic kidney disease with heart failure and stage 1 through stage 4 chronic kidney disease, or unspecified chronic kidney disease; D68.59 Other primary thrombophilia; K21.9 Gastro-esophageal reflux disease without esophagitis; D64.9 Anemia, unspecified; K59.00 Constipation, unspecified; I25.10 Atherosclerotic heart disease of native coronary artery without angina pectoris; E78.5 Hyperlipidemia, unspecified; E11.22 Type 2 diabetes mellitus with diabetic chronic kidney disease; D69.6 Thrombocytopenia, unspecified; E11.65 Type 2 diabetes mellitus with hyperglycemia; E03.9 Hypothyroidism, unspecified; I25.5 Ischemic cardiomyopathy; I48.0 Paroxysmal atrial fibrillation; G89.29 Other chronic pain; N18.3 Chronic kidney disease, stage 3 (moderate); G47.33 Obstructive sleep apnea (adult) (pediatric); E78.00 Pure hypercholesterolemia, unspecified; R16.0 Hepatomegaly, not elsewhere classified; D18.09 Hemangioma of other sites; R82.2 Biliuria; I50.9 Heart failure, unspecified; Z53.29 Procedure and treatment not carried out because of patient's decision for other reasons; Z82.49 Family history of ischemic heart disease and other diseases of the circulatory system; Z95.5 Presence of coronary angioplasty implant and graft; Z95.810 Presence of automatic (implantable) cardiac defibrillator; Z95.1 Presence of aortocoronary bypass graft; Z79.899 Other long term (current) drug therapy; Z79.82 Long term (current) use of aspirin; Z79.4 Long term (current) use of insulin; I25.2 Old myocardial infarction; Z90.49 Acquired absence of other specified parts of digestive tract; Z87.891 Personal history of nicotine dependence; Z86.73 Personal history of transient ischemic attack (TIA), and cerebral infarction without residual deficits; Z88.8 Allergy status to other drugs, medicaments and biological substances
CPT/HCPCS: 10081

== ENCOUNTER 2019-09-02 21:15 | Inpatient (IN) | payer OTHER ==
[~2019-09-02] VITALS: Ht 175.3 cm; Wt 103.5 kg
[~2019-09-02 21:15] MED LIST changes: +CLOPIDOGREL75 MG PO; +LEVOTHYROXINE88 MCG PO; +PREDNISONE 20 M20 M1 PO
[2019-09-02 21:17] VITALS: BP 96/33
[2019-09-02 22:00] LABS: HEMOGLOBIN 7.9 gm/dL (14.0-18.0); WBC 5.9 thou/uL (4.0-11.0)
[2019-09-02 22:02] LABS: HEMATOCRIT 24.3 % (42.0-52.0); MCH 29.7 pg (26.0-34.0); MCHC 32.6 g/dL (28.0-37.0); MCV 91.1 fL (80.0-100.0); PLATELET COUNT 72 thou/uL (150-400); RBC 2.66 mil/uL (4.50-6.00); RDW 20.9 % (10.5-14.5)
[2019-09-02 22:08] LABS: ANION GAP 7 mmol/L (7-16); BUN 34 mg/dL (7-18); CALCIUM 8.8 mg/dL (8.5-10.1); CHLORIDE 97 mmol/L (98-107); CO2 35 mmol/L (21-32); CREATININE 2.2 mg/dL (0.7-1.3); GLUCOSE 159 mg/dL (74-106); POTASSIUM 3.7 mmol/L (3.5-5.1); SODIUM 139 mmol/L (136-145)
[2019-09-02] MEDS ORDERED: OMEPRAZOLE 20 M20 M1 PO (22:08)
[2019-09-02] MEDS ORDERED: OXYCODONE PO (22:10)
[2019-09-02 22:13] LABS: INR 1.1; PROTIME 11.4 Seconds (9.3-11.4)
[2019-09-02 22:14] LABS: ALBUMIN 2.5 g/dL (3.4-5.0); DIRECT BILIRUBIN 0.9 mg/dL (<0.1-0.3); TOTAL BILIRUBIN 2.4 mg/dL (<0.1-1.0); TOTAL PROTEIN 6.3 g/dL (6.4-8.2)
[2019-09-02 22:17] LABS: TROPONIN-I <0.06 ng/mL (<0.06)
[2019-09-02 22:54] LABS: NUCLEATED RBCS 2 /100WBC
[2019-09-02 22:56] LABS: ANISOCYTOSIS 2+; LARGE PLATELETS FEW; PLATELET ESTIMATE DECREASED; POIKILOCYTOSIS 2+
[2019-09-02 23:00] VITALS: BP 100/40
[2019-09-02 23:06] VITALS: BP 108/45
[2019-09-02 23:12] LABS: URINE BILIRUBIN NEGATIVE (Negative); URINE BLOOD NEGATIVE (Negative); URINE CLARITY SL CLOUDY; URINE COLOR YELLOW; URINE GLUCOSE-RANDOM* NEGATIVE (Negative); URINE KETONES NEGATIVE (Negative); URINE LEUKOCYTES-REFLEX NEGATIVE (Negative); URINE NITRITE-REFLEX NEGATIVE (Negative); URINE PROTEIN (DIPSTICK) 1+ (Negative)
[2019-09-02 23:35] LABS: BACTERIA-REFLEX 1-9 Few /HPF (None Seen); CRYSTALS None Seen /LPF (None Seen); HYALINE CASTS >10 Many /LPF (None Seen); MUCUS 4-6 Moderate strn/LPF (None Seen); SQUAMOUS 4-10 Moderate /LPF (0-3); URINE RBC 0-2 Rare /HPF (0-2); URINE WBC-REFLEX 0-5 Rare /HPF (0-5)
--- NOTE | 2019-09-03 01:23 | NUR ---
RECIEVED PT FROM ED UPON ARRIVAL TO ROOM 364, PT ALERT ORIENTED X4 ASSESSMENT AND DATA BASE COMPLETED RESP EASY NON-LABORED CAN TESTER SHOWS AV-PACED DENIES CHEST PAIN . DISCUSS PLAN OF CARE PT AGREEABLE AND VERBALIZED UNDERSTANDING. PAIN MEDICATION GIVEN FOR C/O HEADACHE. WILL REPORT CHANGES OR ABNORMAL FINDINGS.
[2019-09-03 03:53] VITALS: BP 103/52
[2019-09-03 06:18] LABS: CALCIUM 8.2 mg/dL (8.5-10.1); POTASSIUM 3.5 mmol/L (3.5-5.1)
[2019-09-03 08:09] VITALS: BP 111/45
--- NOTE | 2019-09-03 09:01 | EKG ---
[place] [address] [facility] [place] [address] ELECTROCARDIOGRAM REPORT Name: ORLANDO RAMOS Karin Room #: 364-P ADM IN M.R.#: [id number] Admission: 09/02/19 Attend Phys: Yohan Lai MD Discharge: Date of : 43 Report #: [id number] THIS REPORT FOR: //name// [facility] ED Test Date: 2019-09-02 Test Time: 21:58:11 Pat Name: ORLANDO RAMOS Department: Room: 364 Gender: M Manager Test: CATHERINE : 1945 Requested By: Radha Rod Order Number: [id number] MD: Manjeet Winters Measurements Intervals [place] Rate: 60 P: 8 [place]: 127 QRS: 21 QRSD: 107 T: 186 QT: 407 QTc: 407 Interpretive Statements Sinus rhythm Diffuse nonspecific ST segment abnormality Compared to ECG 08/19/2019 08:02:15 Atrial-paced complex(es) or rhythm no longer present ST segment abnormality is less prominent Electronically Signed On 09-03-2019 9:01:12 SUPERVISOR MALT HOUSE by Manjeet Winters [email or web address] <ELECTRONICALLY SIGNED> By: Manjeet Winters MD, [facility] [id number] [phone] Manjeet Winters MD, [facility] /EPI
--- NOTE | 2019-09-03 10:51 | NUR ---
INITIAL ASSESSMENT: Received consult. SW Reviewed chart and spoke with nursing and attending physician. Pt was admitted from home due to CHF/weakness. Pt is on IV lasix, IV steroids and IV iron. SW met with pt at bedside. Introduced role of SW. Pt is alert/orientated x 4. Pt reports he lives at home with his and son. Prior to admission, pt was independent with ADLs. Pt has a cane and nocturnal O2 provided by [employer]. Pt has not had HH in the past. No hx of post-acute placement. Pt's PCP is Dr. Meza. Breastfeeding Program Coordinator is Dr. Winters. PT ordered to evaluate pt. Pt's plan is to return home when medically stable. SW is following to assist as needed with discharge planning.
[2019-09-03 11:25] VITALS: BP 102/52
[2019-09-03 16:01] VITALS: BP 118/55
--- NOTE | 2019-09-03 16:33 | NUR ---
Assumed care approx. 0700 this AM. Pt on 3-4LNC. Pt a-paced on the monitor with a HR of 60 most the day. Pt SOB with exertion and very weak. Fall precautions in place. VINAYAK hose intact. Pt recieved IV lasix per orders. Iron sucrose IV added this AM. 1500 ml fluid restriction followed. Pt hoping to gain more strength and titrate off 02 soon. Pt slowly progressing toward plan of care.
[2019-09-03 20:00] VITALS: BP 122/55
[2019-09-04 02:55] VITALS: BP 123/58
--- NOTE | 2019-09-04 04:52 | NUR ---
ASSUMED CARE AT 1900. PT DENIES PAIN OR NAUSEA. DENIES SOB BUT REPORTS PERSISTENT, DRY COUGH WITHOUT SPUTUM PRODUCTION. PT ASKED FOR ICE WATER MULTIPLE TIMES, HAD TO RE-EDUCATE PT THAT HE WAS ON A 1500 ML FLUID RESTRICTION. CALLS APPROPRIATELY TO USE URINAL AT BEDSIDE. HAS BEEN SR ON TELE, INTERMITTENT A-PACING. NO OTHER CONCERNS, WILL CONTINUE TO MONITOR.
[2019-09-04 07:41] VITALS: BP 121/66
--- NOTE | 2019-09-04 09:27 | EKG ---
[address] [address] ELECTROCARDIOGRAM REPORT Name: ORLANDO RAMOS Room #: 364-P ADM IN M.R.#: [id number] Admission: 09/02/19 Attend Phys: Yohan Lai MD Discharge: Date of : 43 Report #: [id number] THIS REPORT FOR: //name// [facility] Test Date: 2019-09-04 Test Time: 08:52:32 Pat Name: ORLANDO RAMOS Department: Room: 364 P Gender: M Fishing Floats Assembler: PAYAM : 1945 Requested By: Manjeet Winters Order Number: [id number] MD: Manjeet Winters Measurements Intervals [place] Rate: 60 P: 7 [place]: 86 QRS: 26 QRSD: 131 T: 206 QT: 464 QTc: 464 Interpretive Statements Sinus rhythm Nonspecific intraventricular conduction delay Repol abnrm, diffuse leads Compared to ECG 09/02/2019 21:58:11 No significant change was found Electronically Signed On 09-04-2019 9:27:04 UPSETTER HELPER by Manjeet Winters [email or web address] <ELECTRONICALLY SIGNED> By: Manjeet Winters MD, [facility] 09/04/19 0927 1 1 Manjeet Winters MD, [facility] /EPI
[2019-09-04 11:06] VITALS: BP 111/57
[2019-09-04 12:08] LABS: HEMATOCRIT 22.4 % (42.0-52.0); HEMOGLOBIN 7.2 gm/dL (14.0-18.0); MCH 29.5 pg (26.0-34.0); RBC 2.43 mil/uL (4.50-6.00); RDW 21.7 % (10.5-14.5)
--- NOTE | 2019-09-04 14:26 | NUR ---
SW reviewed chart and spoke with nursing and attending physician. 5N consulted to evaluate pt. Pt is too high level for admission to . Recommendation made for pt to go home with HH. SW met with pt at bedside to discuss discharge plan. SW discussed services with pt. Pt states he has used [facility] in the past, but does not think he will need it when he is discharged. No weekend discharge planned at this time. SW is available to assist as needed with discharge planning.
[2019-09-04 15:35] VITALS: BP 123/63
--- NOTE | 2019-09-04 19:44 | NUR ---
ASSUMED PATIENT CARE AT 0700. A/O X4. TITRATED 02 TO 3L. DENIES PAIN. 1500ML FLUID RESTRICTION. UP WITH ASSISTED. SLOWLY TOWARDS POC GOLSELENA.
[2019-09-04 19:56] VITALS: BP 115/54
--- NOTE | 2019-09-05 01:12 | NUR ---
PT AWAKE WATCHING TV UPON ARRIVAL TO SHIFT. VINAYAK OROZCOE ON BLE, O2 PER NC. SBA WITH TRANSFERS, SMILING, GOOD EYE CONTACT, STEADY GAIT. COMPLIANT WITH FR 1500 AND FSBS. TELE V PACED UNDERLYING AFIBB.PT STATES PLAN FOR DC IN AM.
[2019-09-05 03:56] VITALS: BP 101/40
[2019-09-05 04:22] LABS: HEMATOCRIT 23.2 % (42.0-52.0); HEMOGLOBIN 7.4 gm/dL (14.0-18.0); MCH 28.9 pg (26.0-34.0); MCHC 31.9 g/dL (28.0-37.0); MCV 90.4 fL (80.0-100.0); RBC 2.56 mil/uL (4.50-6.00); RDW 20.9 % (10.5-14.5)
[2019-09-05 04:25] LABS: CALCIUM 8.9 mg/dL (8.5-10.1); CREATININE 2.1 mg/dL (0.7-1.3); MAGNESIUM 2.3 mg/dL (1.8-2.4); POTASSIUM 4.2 mmol/L (3.5-5.1)
[2019-09-05 07:49] VITALS: BP 119/55
[2019-09-05 11:37] VITALS: BP 122/57
[2019-09-05 15:50] VITALS: BP 124/59
--- NOTE | 2019-09-05 17:07 | NUR ---
pt is A&OX3, PT is continuing o2 3L/MIN/NC, , PT'S vs and o2sat are stable , pt gets up to walk at hallway with assist, pt denies pain and sob at this time.
[2019-09-05 20:30] VITALS: BP 125/52
[2019-09-06 03:31] VITALS: BP 125/55
[2019-09-06 07:32] VITALS: BP 138/64
--- NOTE | 2019-09-06 07:42 | NUR ---
patient is alert and oriented. patient is up ad shelia. patient is A-paced to NSR. patient is on baseline oxygen. patient pending possible discharge pending hgb. patient refused labs this am. patient was educated on refusal. patient denies pain. patient is resting comfortably in bed. wcm.
[2019-09-06] MEDS ORDERED: LEVAQUIN 500 M500 M2 PO (09:25)
[2019-09-06 09:53] VITALS: BP 138/64
[2019-09-06 11:25] VITALS: BP 132/59
[2019-09-06 15:45] VITALS: BP 133/64
--- NOTE | 2019-09-06 16:42 | NUR ---
ASSUMED PATIENT CARE AT 0700. MO DISDRESS NOTED. DC TO HOME NOW.
== END 2019-09-06 16:48 | disposition home or self-care (01) | DRG 177 ==
LOC: ER 21:15 → 3W 23:03
PROVIDERS: Emergency Medicine; Internal Medicine; Nurse Practitioner; Nurse Practitioner Family; ADMIT Internal Medicine
DX: J15.6 Pneumonia due to other Gram-negative bacteria (principal); I21.4 Non-ST elevation (NSTEMI) myocardial infarction; I50.23 Acute on chronic systolic (congestive) heart failure; J96.21 Acute and chronic respiratory failure with hypoxia; I13.0 Hypertensive heart and chronic kidney disease with heart failure and stage 1 through stage 4 chronic kidney disease, or unspecified chronic kidney disease; E46 Unspecified protein-calorie malnutrition; N17.9 Acute kidney failure, unspecified; D69.3 Immune thrombocytopenic purpura; I48.0 Paroxysmal atrial fibrillation; N18.3 Chronic kidney disease, stage 3 (moderate); D69.6 Thrombocytopenia, unspecified; E78.5 Hyperlipidemia, unspecified; E11.22 Type 2 diabetes mellitus with diabetic chronic kidney disease; I25.10 Atherosclerotic heart disease of native coronary artery without angina pectoris; I25.5 Ischemic cardiomyopathy; G47.33 Obstructive sleep apnea (adult) (pediatric); G89.29 Other chronic pain; E03.9 Hypothyroidism, unspecified; F03.90 Unspecified dementia, unspecified severity, without behavioral disturbance, psychotic disturbance, mood disturbance, and anxiety; R58 Hemorrhage, not elsewhere classified; D50.9 Iron deficiency anemia, unspecified; M54.9 Dorsalgia, unspecified; Z95.5 Presence of coronary angioplasty implant and graft; Z86.73 Personal history of transient ischemic attack (TIA), and cerebral infarction without residual deficits; Z95.1 Presence of aortocoronary bypass graft; Z95.810 Presence of automatic (implantable) cardiac defibrillator; Z90.49 Acquired absence of other specified parts of digestive tract; Z79.899 Other long term (current) drug therapy; Z79.82 Long term (current) use of aspirin; Z88.8 Allergy status to other drugs, medicaments and biological substances; Z87.891 Personal history of nicotine dependence; Z87.01 Personal history of pneumonia (recurrent); Z82.49 Family history of ischemic heart disease and other diseases of the circulatory system; Z68.33 Body mass index [BMI] 33.0-33.9, adult; Z99.81 Dependence on supplemental oxygen
CPT/HCPCS: 10879

== ENCOUNTER 2019-10-19 01:48 | Inpatient (IN) | payer OTHER ==
[2019-10-19] VITALS (9 sets, daily range): BP systolic 88–133; BP diastolic 43–62
[~2019-10-19] VITALS: Ht 175.3 cm; Wt 93.3 kg
[~2019-10-19 01:48] MED LIST changes: +OMEPRAZOLE 20 M20 M1 PO; +OXYCODONE PO
[2019-10-19 02:30] LABS: HEMOGLOBIN 6.5 gm/dL (14.0-18.0); MCH 27.7 pg (26.0-34.0); MCHC 30.9 g/dL (28.0-37.0); MCV 89.7 fL (80.0-100.0); PLATELET COUNT 145 thou/uL (150-400); RBC 2.34 mil/uL (4.50-6.00); WBC 8.8 thou/uL (4.0-11.0)
[2019-10-19 02:34] LABS: BE(vivo) -5.5 mmol/L (-2 to +3); HCO3 18.7 mmol/L (22.0-26.0); PCO2 VENOUS 29.8 mmHg (41.0-51.0); PO2 VENOUS 35.2 mmHg (35.0-45.0)
[2019-10-19 02:37] LABS: CALCIUM 9.7 mg/dL (8.5-10.1); CREATININE 2.7 mg/dL (0.7-1.3); POTASSIUM 4.1 mmol/L (3.5-5.1)
[2019-10-19 02:42] LABS: APTT 25.3 Seconds (24.5-32.8); INR 1.1; PROTIME 11.5 Seconds (9.3-11.4)
[2019-10-19 02:45] LABS: ALBUMIN 2.5 g/dL (3.4-5.0); MAGNESIUM 1.8 mg/dL (1.8-2.4); TOTAL BILIRUBIN 1.9 mg/dL (<0.1-1.0); TOTAL PROTEIN 6.9 g/dL (6.4-8.2); TROPONIN-I 0.06 ng/mL (<0.06)
[2019-10-19 03:05] LABS: ABSOLUTE NEUTROPHILS 5.8 thou/uL (1.4-8.2); METAMYELOCYTES 10 %; MYELOCYTES 7 %; NUCLEATED RBCS 6 /100WBC
[2019-10-19 03:06] LABS: HYPOCHROMASIA 1+; MICROCYTES 1+; OVALOCYTES 2+; POIKILOCYTOSIS 3+; POLYCHROMASIA 1+
[2019-10-19 03:07] LABS: SCHISTOCYTES 3+
[2019-10-19 03:08] LABS: LARGE PLATELETS OCCASIONAL
[2019-10-19 03:09] LABS: ANISOCYTOSIS 3+
--- NOTE | 2019-10-19 07:43 | NUR ---
BLOOD TRANSFUSION COMPLETED. NO REACTION
--- NOTE | 2019-10-19 10:21 | EKG ---
[place] [address] [place] [address] ELECTROCARDIOGRAM REPORT Name: ORLANDO RAMOS Room #: 353-P ADM IN M.R.#: [id number] Admission: 10/19/19 Attend Phys: Bryce Garcia MD Discharge: Date of : 43 Report #: [id number] THIS REPORT FOR: //name// [facility] ED Test Date: 2019-10-19 Test Time: 02:02:05 Pat Name: ORLANDO RAMOS Department: Room: [facility] Gender: M Signal Helper: vickey : 1945 Requested By: Wilner Murphy Order Number: [id number] MD: Manjeet Winters Measurements Intervals [place] Rate: 60 P: [place]: 56 QRS: -63 QRSD: 182 T: 114 QT: 524 QTc: 524 Interpretive Statements Atrial-ventricular dual-paced complexes No further rhythm analysis attempted due to paced rhythm Compared to ECG 09/04/2019 08:52:32 AV sequential pacing is now present Electronically Signed On 10-19-2019 10:21:14 GRIEVANCE COORDINATOR by Manjeet Winters [email or web address] <ELECTRONICALLY SIGNED> By: Manjeet Winters MD, [facility] 10/19/19 1021 0202 1 Manjeet Winters MD, [facility] /EPI
--- NOTE | 2019-10-19 13:55 | NUR ---
INITIAL ASSESSMENT: SW Reviewed chart and spoke with nursing and attending physician. Pt was admitted from home due to anemia/weakness. GI and Hem/Onc consulted due to iron deficiency/anemia. Pt is on IV iron. SW met with pt at bedside. Introduced role of SW. Pt is alert/orientated x 4. Pt reports he lives at home with his and son in [place], [place]. Prior to admission, pt was independent with ADLs. Pt has a cane and nocturnal O2 provided by [employer]. Pt states he has been using 3L continuously. Pt has not had HH in the past. Pt states that [facility] was ordered one time for him, but he declined their visits. No hx of post-acute placement. Pt's PCP is Dr. Meza. Lehr Stripper is Dr. Winters. Pt states that woodworker helper wants him to go to 5N. SW explained need for [place] evals and insurance authorization. PT/OT ordered to evaluate pt. SW is following to assist as needed with discharge planning.
--- NOTE | 2019-10-19 16:13 | NUR ---
PT admitted from ER, pt is A&OX3, pt has 1 unit blood transfusion today for hgb 6.5 in ER today.pt is on o2 3L/MIN/NC, PT'S VS and o2sat are stable, pt is continuing IV NS @ 80ML/HR, PT has void 400ml urine by this time. pt denies pain and sob at this time.
[2019-10-19 20:50] LABS: HEMOGLOBIN 6.2 gm/dL (14.0-18.0)
[2019-10-20 04:40] VITALS: BP 126/60
--- NOTE | 2019-10-20 06:47 | NUR ---
PATIENT IS ADVANCING SLOWLY IN HIS CARE PLAN. VITAL SIGNS STABLE WITH PATIENT HAVING NO COMPLAINTS OF PAIN OR NAUSEA. MOSTLY ORIENTED, PATIENT IS ABLE TO PARTICIPATE IN CARE AND CALL APPROPRIATELY FOR NEEDS. BLOOD TRANSFUSION PER ORDER WHICH PATIENT TOLERATED WELL. UP MULTIPLE TIMES TO BEDSIDE COMMODE WITH ASSISTANCE INCIDENT FREE. PATIENT IS CONSIDERED A HIGH FALL RISK. CONTINUE PLAN OF CARE.
[2019-10-20 07:06] LABS: HEMATOCRIT 21.8 % (42.0-52.0); HEMOGLOBIN 7.1 gm/dL (14.0-18.0); MCH 28.4 pg (26.0-34.0); MCHC 32.4 g/dL (28.0-37.0); MCV 87.6 fL (80.0-100.0); RBC 2.49 mil/uL (4.50-6.00); WBC 7.5 thou/uL (4.0-11.0)
[2019-10-20 07:30] LABS: CALCIUM 9.9 mg/dL (8.5-10.1); CREATININE 2.5 mg/dL (0.7-1.3); POTASSIUM 3.6 mmol/L (3.5-5.1); TROPONIN-I 0.09 ng/mL (<0.06)
[2019-10-20 07:50] VITALS: BP 113/56
[2019-10-20 10:11] LABS: ABSOLUTE RETIC COUNT 0.0515 10^6/uL; OBSERVED RETIC COUNT 2.01 % (0.6-2.6)
[2019-10-20 10:22] LABS: % SATURATION 14 % (20-39); IRON 21 ug/dL (65-175); TIBC 145 ug/dL (250-450)
[2019-10-20 11:27] VITALS: BP 104/55
[2019-10-20 11:34] VITALS: BP 111/56; BP 112/54
--- NOTE | 2019-10-20 13:12 | EKG ---
[facility] [place] [address] ELECTROCARDIOGRAM REPORT Name: ORLANDO RAMOS Room #: 353-P ADM IN M.R.#: [id number] Admission: 10/19/19 Attend Phys: Fabiano Mg MD Discharge: Date of : 43 Report #: [id number] THIS REPORT FOR: //name// [facility] Test Date: 2019-10-20 Test Time: 10:15:50 Pat Name: ORLANDO RAMOS Department: Room: 353 Gender: M Ab Initio Etl Developer: Reggie DICK : 1945 Requested By: Manjeet Winters Order Number: [id number] MD: Manjeet Winters Measurements Intervals [place] Rate: 60 P: 0 [place]: 56 QRS: -60 QRSD: 181 T: 121 QT: 512 QTc: 512 Interpretive Statements Atrial-ventricular dual-paced rhythm No further analysis attempted due to paced rhythm Compared to ECG 10/19/2019 02:02:05 No significant changes Electronically Signed On 10-20-2019 13:12:22 [employer]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
--- NOTE | 2019-10-20 15:57 | NUR ---
SW reviewed chart and spoke with nursing and attending physician. Pt to have bone marrow bx today. Pt remains on IV iron. Pt off the unit during SW visit. Discharge home is anticipated in 1-2 days. SW is following to assist as needed with discharge planning.
--- NOTE | 2019-10-20 16:16 | NUR ---
pt is A&OX3, pt's has 1 untit blood transfusion for hgb7.1 today, transfusion finished about 1410pm, no reaction at this time, pt is continuing o2 4L/MIN/NC, pt's vs and o2sat are stable, pt is going to NPO after MN for IR biopsy bone marrow tomorrow, pt has signed the consent, pt denies pain and n/v at this time.
[2019-10-20 16:24] VITALS: BP 124/98
[2019-10-20 17:02] LABS: HEMATOCRIT 22.5 % (42.0-52.0); HEMOGLOBIN 7.3 gm/dL (14.0-18.0)
[2019-10-20 19:28] VITALS: BP 112/57
[2019-10-21] VITALS (7 sets, daily range): BP systolic 109–123; BP diastolic 47–59
--- NOTE | 2019-10-21 05:10 | NUR ---
PT MAKING SLOW PROGRESS TOWARDS GOALS. LUNGS CLEAR AND DIMINISHED THROUGHOUT OUT EXCEPT CRACKLES NOTED OVER RLL. PT COOPERATIVE WITH CALL FOR ASSISTANCE TO GET OOB. UP X1 ASSIST TO AMBULATE. DOES STATE THAT HE IS FEELING "WEAK."
[2019-10-21 05:43] LABS: HEMATOCRIT 22.5 % (42.0-52.0); HEMOGLOBIN 7.4 gm/dL (14.0-18.0); MCH 28.9 pg (26.0-34.0); MCHC 32.8 g/dL (28.0-37.0); MCV 88.1 fL (80.0-100.0); RBC 2.55 mil/uL (4.50-6.00); RDW 19.6 % (10.5-14.5); WBC 6.4 thou/uL (4.0-11.0)
[2019-10-21 05:46] LABS: CREATININE 2.3 mg/dL (0.7-1.3); POTASSIUM 3.4 mmol/L (3.5-5.1)
--- NOTE | 2019-10-21 07:38 | HC ---
[facility] [place] [address] CONSULTATION Name: RACHELORLANDO Karin Room #: 353-P ADM IN ..#: [id number] Admission: 10/19/19 Attend Phys: Fabiano Mg MD Discharge: Date of : 43 Report #: [id number] THIS REPORT FOR: //name// CC: Ezra Winters MD [facility] Fabiano Meza DO REASON FOR CONSULTATION: Anemia and thrombocytopenia. HISTORY OF PRESENT ILLNESS: The patient is a 74-year-old male who I had seen before back in August for anemia thought perhaps be related to iron deficiency, who received since that time about 8 bags of IV sucrose who unfortunately comes back in with a history of weakness and falling and his hemoglobin when he came in yesterday was 6.5. He has received 2 units of blood, hemoglobin 7.1, but he was also dry and receiving hydration. The patient does not seem to report any bleeding nor of any other physicians, I am aware of picked up that from his for ____. Note he has renal insufficiency. When he was last here, he was noted to have a normal B12 and folate. His platelet counts have been low, but came back up. Most recently, they are down to 111. White count around 7.5 with fairly normal differential. I do note that they thought about schistocytes this time. REVIEW OF SYSTEMS: The patient denies headache, fevers, chills, sweats, swallowing trouble, pain, shortness of air at this time, diarrhea, constipation, blood in his urine or stool. Does have ankle swelling that comes and goes ____. Note, the patient is a questionable historian, may have some cognitive impairment. PAST MEDICAL HISTORY: Notable for atrial fibrillation, chronic kidney disease, anemia, CHF. Also, has an AICD in situ, history of coronary artery disease with past stents, history of hypertension, lipidemia, history of pancreatitis, past history of varicose veins, past history of diabetes type 2, history of hyperlipidemia, and history of hypothyroidism. FAMILY HISTORY: Longevity on his mother's side. No cancer or blood issues. Has had three sisters, one had dementia. He has four children. SOCIAL HISTORY: Retired, used to work at [email or web address] for about 30+ years. 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 MEDICATIONS: At this time, currently include isosorbide mononitrate 30 mg daily, vitamin C 500 daily, fluticasone 1 spray each nasal daily, aspirin 81 mg daily, amiodarone 200 mg b.i.d., clopidogrel 75 daily. I think Plavix may be on hold, carvedilol 12.5 b.i.d., pantoprazole 40 daily, levothyroxine 88 mcg daily, [address] [address] CONSULTATION Name: ORLANDO RAMOS Room #: 353-P [facility].#: [id number] Admission: 10/19/19 Attend Phys: Fabiano Mg MD Discharge: Date of : 43 Report #: [id number] insulin on a sliding scale, various electrolyte replacements. Note that he is receiving IV iron again. PHYSICAL EXAMINATION: GENERAL: The patient appears his stated age. VITAL SIGNS: Height is 5 feet 9 inches, 175.3 cm. Weight is 205 pounds, which is 93.3 kilograms. Blood pressure 113/56 improved from when he came in, respirations 20; O2 sat 90%, also 95%; pulse 59, and temperature has mostly been afebrile, most recently 99.3. MOOD: Light and conversant. NEUROLOGIC: Speech and thought pattern appear to be normal. The distant memory is not so good. Moving arms and legs. LYMPHATICS: No enlarged lymph nodes on exam in the supraclavicular, cervical, axillary or inguinal region. ABDOMEN: Obese, nontender. No masses. EXTREMITIES: Without clubbing, cyanosis. There is some trace edema in the ankles. LABORATORY DATA: As I mentioned above is notable for a creatinine of 2.5, which is a little bit higher than baseline at 2 recently. Transaminases show an AST of 42 that is about baseline for him to slightly lower; total bilirubin 1.9, in the past had been 2.4 and also 1.4 range. Albumin is 2.5, LDH in August had been 288. Iron in August before any iron level was 38, low; TIBC 283, normal; percent iron saturation 13. Coags this admit were normal. White count 7.5, which is about baseline; hemoglobin after 2 units 7.1, MCV has been stable between 87 and 90 in recent weeks. RDW is slightly elevated at 23 on admit. Platelets 111, they had been 145 yesterday last time, on discharge had been 67, back in May had been 162 and then dropped. Differential 44 segs, 22 bands, these are percentages; 11% lymphocytes, 6 monos, 1 eos, no basos, 10 metamyelocytes, 7 myelocytes, 6 nrbc's. Also make a comment about basophilic stippling and large platelets, and also 3+ schistocytes and 2+ ovalocytes. Note, this was on the prehydrated blood from yesterday. We will ask him to repeat a differential, retic count pending. We will ask them to run on blood before transfusion, same for the iron panel. Note that last admission, EPO level was around 200-240, also absolute retic last admit had been 0.071 inappropriately low; peripheral smear last visit, had not seen any overtly acute changes. Immature platelet fraction last visit had been slightly elevated at 9.9. Heparin antibody last admit, had been low at 0.142. As mentioned above, imaging during last admit, had CAT scans chest, abdomen and pelvis that did not reveal any suspicious adenopathy or masses. Did note that they had seen a liver mass, had been seen in 2010 and thought to be unchanged. ASSESSMENT AND PLAN: 1. Anemia and thrombocytopenia. The patient received 8 bags of IV iron in the last 2 months. No reports of bleeding. I doubt that he is hemolyzing with his Dominga negative. Total bilirubin 1.9. I talked with his and also the [address] [address] CONSULTATION Name: ORLANDO RAMOS Room #: 353-P ADM IN [facility]#: [id number] Admission: 10/19/19 Attend Phys: Fabiano Mg MD Discharge: Date of : 43 Report #: [id number] patient will arrange for bone marrow biopsy and aspirate with conscious sedation to check for flow cytometry and cytogenetics to see if he may have a myeloproliferative disorder. No current sign of bleeding. Note that B12 and folate were checked last admit. 2. History of recent dehydration and heart failure. Careful balance of diuretics and fluids currently being rehydrated. 3. History of jel-BO-fdzkipvsg myocardial infarction with drug-eluting stents per Cardiology. 4. Coronary artery disease per Cardiology. 5. History of congestive heart failure per Cardiology. 6. Chronic kidney disease. Monitor fluid status. 7. AICD in situ per Cardiology. 8. Hypertension. Current meds. 9. History of varicose veins, not currently an issue. 10. Questionable cognitive impairment. Continue monitoring. 11. Paroxysmal atrial fibrillation per Cardiology. 12. Diabetes mellitus, sliding scale insulin and Accu-Cheks. 13. History of obstructive sleep apnea. Home O2 use. 14. Lipid abnormalities per Cardiology. 15. Aortic aneurysm, status post stent graft in the past. 16. History of cerebrovascular accident in the past, had been on aspirin, statin and Plavix recently. 17. History of carotid stenosis, status post left carotid endarterectomy in the past. We will follow with you. <ELECTRONICALLY SIGNED> By: Wesly Bravo MD 10/21/19 0738 [id number] [id number] Wesly Bravo MD /nt
--- NOTE | 2019-10-21 15:03 | NUR ---
SW reviewed chart and spoke with nursing and attending physician. Pt to have bone marrow bx today and EGD/colonoscopy tomorrow. Pt is progressing towards goals for discharge. BRIA met with pt and at bedside to discuss discharge plan: post-acute placement. Pt's preference is to go to [facility]. BRIA explained need for insurance authorization. SW provided pt and with list of in-network SNFs should insurance not authorize inpt acute rehab. [facility] the past and would be aggreable to going there if needed. media planner / buyer to fax referral to [facility]. Request that facility not submit for insurance auth until determination from [facility]. [facility] consult entered today. Discussed with [facility] rehabilitation program coordinator. Awaiting input from insurance at this time. BRIA is following to assist as needed with discharge planning.
--- NOTE | 2019-10-21 15:29 | NUR ---
DISCHARGE PLANNING. PLAN A: ANTICIPATED DISCHARGE TO ACUTE REHAB, [facility], PENDING INSURANCE AUTH. PLAN B: DISCHARGE TO ALF. PATIENT REFERRAL FAXED TO [facility]. CALL PLACED TO [facility] ADMISSIONS. SPOKE WITH MIC. MIC TO REVIEW PATIENT REFERRAL AND NOTIFY CM IF THEY CAN ACCEPT PATIENT CLINICALLY. MIC AWARE OF DC PLAN AND WILL NOT SUMBIT FOR INSURANCE AUTH UNTIL NOTIFIED. FOLLOWING.
--- NOTE | 2019-10-21 17:11 | NUR ---
ASSUMED CARE OF PT AT 0700. PT REQUIRING 5L NC AFTER BONE MARROW BIOPSY DUE TO SEDATIVES TO MAINTAIN SPO2. TRANSFUSED 1 UNIT OF BLOOD. VITALS STABLE. NOW ON CCLEAR LIUQIDS PER GI. ANTICIPATE GI PROCEDURE IN AM. COMPLAINING OF PAIN TO RIGHT WRIST, WHICH DOES APPEAR SWOLLEN - PHYSICIAN NOTIFIED. ELEVATED WITH PILLOWS IN MEANTIME. NO ACTIVE SIGNS OF BLEEDING. WILL CONT TO MONITOR.
[2019-10-22 00:01] VITALS: BP 98/56
--- NOTE | 2019-10-22 00:30 | NUR ---
transfer pt from [facility], arrived unit @ about 2330. pt a&ox4. pt stated that he hasn't move his bowel in 3days. bowel prep was started downstairs and pt is currently working on it until midnight when he will be npo for his procedure. pt gets up eith 1 assist to the bsc. pt is on 4l nc and sats are wnl. no s/s of distress. will cont to monitor
[2019-10-22 05:26] LABS: HEMATOCRIT 23.9 % (42.0-52.0); HEMOGLOBIN 7.8 gm/dL (14.0-18.0); MCH 28.7 pg (26.0-34.0); MCHC 32.8 g/dL (28.0-37.0); MCV 87.6 fL (80.0-100.0); RBC 2.73 mil/uL (4.50-6.00); RDW 19.1 % (10.5-14.5); WBC 6.4 thou/uL (4.0-11.0)
[2019-10-22 05:32] LABS: CALCIUM 9.1 mg/dL (8.5-10.1); CREATININE 2.3 mg/dL (0.7-1.3); POTASSIUM 3.6 mmol/L (3.5-5.1)
--- NOTE | 2019-10-22 13:34 | NUR ---
DC RECOVERY SPECIALIST INDICATED THAT [facility] WITH [facility] WAS COMING TO DO AN ONSITE VIST THIS DAY. [facility] IS FOLLOWING. PT IS TO HAVE COLONOSCOPY AND EGD THIS DAY. CM TO FOLLOW INDICATED WITH DC PLANNING.
[2019-10-22 13:42] VITALS: BP 114/57; BP 116/60; BP 124/62
[2019-10-22 15:52] VITALS: BP 119/59
[2019-10-22 18:18] VITALS: BP 114/54
[2019-10-22 18:58] VITALS: BP 109/55
--- NOTE | 2019-10-22 19:46 | NUR ---
Assumed pt care this am, VS stable. NPO maintained. Transfused 1 unit of RBC with no signs of distress or reactions. Pt went down for an EGD and colonoscopy late in the pm. is at the bed side. Pt is able to get up with 1 assists to the bed side commode and use the urinal as needed. POC followed, no signs or verbalizations of distress have been noted. Endorsed to the night nurse.
--- NOTE | 2019-10-22 21:06 | NUR ---
Pt. O2 was increased to 5 liters per nasal canula from 4 liters as O2 saturation in the uppers 80's. O2 saturation went up to 95% on 5 liters. Lungs with some fine crackles present and pt. did have a blood transfusion today. Ivf were dc'd. Hayde ALEXANDER called and notified and new order for one time ivp of lasix 20 mg. Pt. offers no c/o increased shortness of air.
--- NOTE | 2019-10-23 03:30 | NUR ---
Pt. rested quietly at intervals during the night when checked on during frequent rounds. He offers no c/o pain. Voiding per urinal without dif- ficulty. No c/o shortness of air. Bed alarm is on.
[2019-10-23 06:14] LABS: HEMOGLOBIN 8.2 gm/dL (14.0-18.0); MCH 29.1 pg (26.0-34.0)
[2019-10-23 06:17] LABS: HEMATOCRIT 24.9 % (42.0-52.0); MCV 88.4 fL (80.0-100.0); RBC 2.81 mil/uL (4.50-6.00); RDW 18.9 % (10.5-14.5); WBC 6.2 thou/uL (4.0-11.0)
[2019-10-23 06:26] LABS: CALCIUM 8.8 mg/dL (8.5-10.1)
[2019-10-23 06:38] LABS: POTASSIUM 2.9 mmol/L (3.5-5.1)
[2019-10-23 07:40] VITALS: BP 131/59
--- NOTE | 2019-10-23 13:29 | NUR ---
WE ARE AWAITING AUTH FOR PT TO DISCHARGE TO [facility] ACUTE INPATIENT REHAB. CM TO FOLLOW INDICATED WITH DC PLANNING.
[2019-10-23 15:22] VITALS: BP 107/55
--- NOTE | 2019-10-23 17:16 | NUR ---
Assumed pt care this am, VS have been stable , uses the urinal. Potassium replacement started in the agricultural research director and completed this shift. Still at 3.[address] Mg. POC followed, no signs or verbalization of distress have been noted. Pt has been moved to senior suites, report given to the ss nurse. 5 L of O2 maintained, though when pt worked with OTO2 sats dropped to the 70's% , went back up to the 90's when O2 was bumpped up to 8L.
[2019-10-23 20:10] VITALS: BP 116/55
--- NOTE | 2019-10-24 05:03 | NUR ---
PATIENT ALERT AND ORIENTED X4. DENIES PAIN. COOPERATIVE WITH CARE. UP TO BEDSIDE USING URINAL. BS MONITORED PER ORDER. 02NC AT 5L. SNACK GIVEN AT HS. CONTINUE TO MONITOR FOR LOW POTASSIUM - AM NURSE ADMINISTERED POTASSIUM. RESTING QUIETLY AT TIME OF NOTE.
[2019-10-24 05:36] LABS: HEMOGLOBIN 8.6 gm/dL (14.0-18.0); WBC 5.5 thou/uL (4.0-11.0)
[2019-10-24 05:37] LABS: HEMATOCRIT 26.7 % (42.0-52.0); MCH 28.5 pg (26.0-34.0); MCHC 32.4 g/dL (28.0-37.0); MCV 87.9 fL (80.0-100.0); RBC 3.03 mil/uL (4.50-6.00)
[2019-10-24 05:57] LABS: CALCIUM 9.2 mg/dL (8.5-10.1); CREATININE 1.8 mg/dL (0.7-1.3); POTASSIUM 3.5 mmol/L (3.5-5.1)
[2019-10-24 07:23] VITALS: BP 133/70
--- NOTE | 2019-10-24 09:34 | NUR ---
DENIAL FOR [facility] INPATIENT REHAB RECEIVED 10/23/2019 VIA PHONE MESSAGE RETRIEVED 10/24/2019. REASON FOR DENIAL: PT NOT MEDICALLY STABLE AND REQUIRES CONTINUED HOSPITAL STAY. MESSAGE FROM GUNJAN AT [phone] A PEER TO PEER CONSULT WAS OFFERED AND PHONE NUMBER IS [phone]. PEER TO PEER OFFER VALID UNTIL 10/29/2019 AT 1100.
[2019-10-24 16:45] VITALS: BP 109/59
[2019-10-24 19:58] VITALS: BP 115/55
--- NOTE | 2019-10-24 20:00 | NUR ---
ASSUMED CARE OF THE PATIENT AT 0715, PATIENT ALERT AND ORIENTED X 4. DENIES PAIN THIS SHIFT. UP WITH SBA ON SIDE OF THE BED TO USE URINAL. O2 AT 5 LITERS/NC IN PLACE. [facility]. ACCU CHECKS AC/HS LAST BLOOD SUGAR 144, NO S/S INSULIN GIVEN. PATIENT HAS RIGHT AC IV IN PLACE, FLUSHED WITH NS AND REMAINS PATENT. WILL CONTINUE TO MONITOR.
[2019-10-25 04:50] LABS: HEMOGLOBIN 8.6 gm/dL (14.0-18.0); RBC 3.01 mil/uL (4.50-6.00); WBC 4.6 thou/uL (4.0-11.0)
[2019-10-25 04:52] LABS: HEMATOCRIT 26.3 % (42.0-52.0); MCH 28.5 pg (26.0-34.0); MCHC 32.6 g/dL (28.0-37.0); MCV 87.5 fL (80.0-100.0); RDW 18.7 % (10.5-14.5)
--- NOTE | 2019-10-25 04:55 | NUR ---
PATIENT ALERT AND ORIENTED X4. DENIES PAIN. COOPERATIVE WITH CARE, HOWEVER, DUE TO WANTING TO GO HOME HE IS BECOMING SLIGHTLY AGITATED WITH HIS STAY. PATIENTS POTASSIUM HAS INCREASED TO 3.5 DURING THE DAY SHIFT. REMAINS ON 4-5 LITERS OF OXYGEN PER NC. BS MONITORED PER ORDER. GIVEN SNACK DURING THE NIGHT. CONTINUES TO USE URINAL AT BEDSIDE WITH YELLOW URINE. NO STOOL AT THIS TIME, WILL OBTAIN SAMPLE FOR OCCULT BLOOD WHEN POSSIBLE. C/O NOT SLEEPING WELL - TAKING CAT NAPS THROUGHOUT THE NIGHT. PATIENT DENIED ADMISSION TO 5N REHAB PER NOTES IN CHART. PATIENT STATED THAT HE WOULD LIKE TO ATTEND REHAB IN [place], [place] AT A FACILITY HE IS FAMILIAR WITH. RESTING QUIETLY. WILL MONITOR.
[2019-10-25 07:55] VITALS: BP 142/70
[2019-10-25 17:10] VITALS: BP 138/73
--- NOTE | 2019-10-25 17:20 | NUR ---
PT ALERT AND ORIENTED TIMES FOUR. VSS, 94%4L. PT DENIES PAIN/SOA. PT UP WITH STANDBY ASSIST. PT TOLERATES MEDS AND MEALS. PT AT BEDSIDE. PT PROGRESSING TOWRADS POC GOALS.
[2019-10-25 19:50] VITALS: BP 124/55
--- NOTE | 2019-10-26 05:03 | NUR ---
PATIENT ALERT AND ORIENTED X4. UP TO SIDE OF BED USING URINAL. 02NC 4-5L. NO BM SINCE 10/22/2019. DENIES PAIN. BS MONITORED PER ORDER. SNACK GIVEN AT HS. RESTING QUIETLY. WILL MONITOR.
[2019-10-26 07:24] VITALS: BP 144/73
--- NOTE | 2019-10-26 10:19 | NUR ---
BRIA reviewed chart and spoke with nursing and attending physician. Pt was transferred to Senior Suites from 4[facility]. BRIA notified this morning that insurance denied authorization for inpt acute rehab on Saturday. Option for peer to peer review provided. BRIA met with pt at bedside to discuss discharge plan. Pt states he would prefer to go to [facility], as it is 10 minutes from his home. BRIA notified attending physician and [facility] clinical liaison. principal planner to fax clinical/therapy updates to [facility] for review. Will need insuarance authorization. BRIA is following to assist as needed with discharge planning.
--- NOTE | 2019-10-26 11:08 | NUR ---
ASSUMED CARE OF PT AT 0700, VSS, NO C/O PAIN. PT REMAINS ON 4-5L O2 PER NC. PT AOX4, CURRENTLY UP TO CHAIR WITH OT. PT TOLERATES DIET, UP TO SIDE OF BED TO USE URINAL. FALL PRECAUTIONS IN PLACE. PT HAS CALL LIGHT/PERSONAL ITEMS IN REACH. WILL CONTINUE TO MONITOR PT.
[2019-10-26 13:47] VITALS: BP 137/63
[2019-10-26 20:15] VITALS: BP 146/70
--- NOTE | 2019-10-27 06:01 | NUR ---
ASSUMED PT CARE AT APPROX 1930. PT IS A&OX4. PT'S IS AT BEDSIDE. PT TOOK SCHEDULE MEDICATION. I TOOK PT FOR A WALK. HE WENT ABOUT 45 TOTAL FEET. PT COMPLAINED ABOUT NOT BEING ABLE TO SLEEP. I CALLED THE ORDER PROCESSING CLERK AND SHE ORDERED HIM MELATONIN. PT STATES THAT HE TAKES 60 MG OF THIS DRUG AT HOME AND THAT THIS WILL NOT WORK FOR HIM. PT HAD A LARGE BROWN FORMED STOOL. I SENT A SAMPLE DOWN. PT IS RESTING IN HIS ROOM AND IS ALSEEP. I WILL CONITNUE TO MONITOR.
[2019-10-27 07:55] VITALS: BP 135/65
[2019-10-27 08:18] LABS: HEMATOCRIT 26.2 % (42.0-52.0); HEMOGLOBIN 8.5 gm/dL (14.0-18.0); MCH 28.2 pg (26.0-34.0); MCHC 32.4 g/dL (28.0-37.0); RBC 3.02 mil/uL (4.50-6.00); RDW 18.1 % (10.5-14.5); WBC 4.5 thou/uL (4.0-11.0)
[2019-10-27 08:33] LABS: CREATININE 1.4 mg/dL (0.7-1.3); POTASSIUM 3.1 mmol/L (3.5-5.1)
[2019-10-27 08:38] LABS: CALCIUM 9.4 mg/dL (8.5-10.1)
[2019-10-27] MEDS ORDERED: DEMADEX20 MG PO (09:53)
--- NOTE | 2019-10-27 10:05 | NUR ---
SW reviewed chart and spoke with nursing and attending physician. Pt is medically stable for discharge to [facility] today pending insurance authorization. Discharge orders/summary finalized. Chart copy requested. Therapy to see pt early today. BRIA is following to finalize discharge plan.
[2019-10-27 18:07] VITALS: BP 123/51
--- NOTE | 2019-10-27 19:12 | NUR ---
ASSUMED CARE OF PATIENT AT 0715, PATIENT ALERT AND ORIENTED X 4. UP WITH SBA WITH WALKER/GB/OXYGEN AT 5 LITERS/NC. PATIENT DENIES PAIN THIS SHIFT. PATIENT HAS RIGHT AC IV IN PLACE, RECEIVED IV PUSH IRON THIS AM. HEMG. 8.5 TODAY. PATIENT WAITING ON INSURANCE AUTH FOR [facility], INSURANCE APPROVED AND PATIENT LEFT AT 1840, REPORT GIVEN TO GRADY/WHITNEY AT THE FACILITY. ALL DISCHARGE PAPERWORK AND ALL PERSONAL BELONGINGS SENT WITH THE PATIENT. IGHT AC IV REMOVED PRIOR TO DISCHARGE.
--- NOTE | 2019-10-28 15:15 | HC ---
[facility] [place] [address] CONSULTATION Name: ORLANDO RAMOS Room #: 412-P [facility]#: [id number] Admission: 10/19/19 Attend Phys: Fabiano Mg MD Discharge: 10/27/19 Date of : 43 Report #: [id number] THIS REPORT FOR: //name// CC: Manjeet Mg DATE OF SERVICE: 10/21/2019 HISTORY OF PRESENT ILLNESS: The patient is a 74-year-old white male with multiple medical comorbidities, coronary artery disease with prior stenting and CABG, ischemic cardiomyopathy with ejection fraction of 45%, prior permanent pacemaker, paroxysmal atrial fibrillation, hypertension, hyperlipidemia, diabetes mellitus type 2, chronic kidney disease stage 3, admitted with increased shortness of breath, weakness, falls x 2. Notes he could not get in or out of bed. His had turned off his oxygen from 3 liters baseline to 4 liters. Upon admission, was noted to have acute renal insufficiency superimposed on chronic kidney disease. He was given IV fluids. Diuretics were modified. He was also noted to have symptomatic anemia with a low hemoglobin down to 6.2. He has been transfused. He underwent a bone marrow biopsy today and the plan is to undergo EGD and colonoscopy tomorrow. His Plavix has had to be held for 3 days. We are seeing him in rehabilitation medicine consultation. PAST MEDICAL HISTORY: As noted above. He also has a history of chronic kidney disease stage 3, prior CVA, history of carotid stenosis with prior left carotid endarterectomy, history of an abdominal aortic aneurysm, status post stent graft and history of low platelets. MEDICATIONS: Please see the medication listing as noted. SOCIAL HISTORY: Lives in a house with his , 3 steps in. Premorbid cane ambulator, was on 3 liters nasal cannula. REVIEW OF SYSTEMS: No current complaints of chest pain, shortness of breath or abdominal discomfort. He has some discomfort as expected, post bone marrow biopsy. PHYSICAL EXAMINATION: GENERAL: A 74-year-old white male, nasal prong O2. No obvious distress. VITAL SIGNS: Temperature 37.3, pulse 62, respirations 24, blood pressure 119/55. NEUROLOGIC: He is alert, follows basic 1 step commands. HEENT: Facies are symmetric. EXTREMITIES: He has functional range of motion of the upper extremity. Strength is grade 4- to 3+/5. DTRs are trace to 1. Lower extremities, limited examination as he is just back from the bone marrow biopsy. He is able to move his distal lower extremities, I would grade his strength at 3+ to 4-/5. There [address] [address] CONSULTATION Name: ORLANDO RAMOS Room #: 412-P [facility]#: [id number] Admission: 10/19/19 Attend Phys: Fabiano Mg MD Discharge: 10/27/19 Date of : 43 Report #: [id number] is no focal calf swelling. He has been mod assist with sit to stand. Gait was 45 feet min assist with a front-wheeled walker. ASSESSMENT: A 74-year-old white male with the following problem list: 1. Medical complexity with generalized debilitation. 2. Symptomatic anemia down to 6.2. Bone marrow biopsy today. EGD and colonoscopy tomorrow after Plavix on hold for 3 days. 3. Nuecm-ti-gswxzux renal insufficiency. 4. Gait instability with frequent falls prior to admission. 5. Chronic systolic heart failure. 6. Ischemic cardiomyopathy, status post automatic implantable cardioverter-defibrillator. 7. Coronary artery disease, status post stenting. 8. Paroxysmal atrial fibrillation. 9. Hypertension. 10. Diabetes mellitus type 2. 11. Obstructive sleep apnea. 12. Prior abdominal aortic aneurysmal stent grafting. 13. Prior history of a cerebrovascular accident without significant residual. 14. Carotid stenosis, status post left carotid endarterectomy. PLAN: We will add occupational therapy orders. Anemia workup is underway. Physical therapy to continue to work with him. Insurance will need to be checked regarding rehab therapy issues as he further medically stabilizes. We will be glad to follow along with you. <ELECTRONICALLY SIGNED> By: Alonso lFower MD 10/28/19 1515 1316 0055 Alonso Flower MD /nt
--- NOTE | 2019-10-30 01:06 | PATH ---
[facility] [place] [address] PATHOLOGY RPT PROCEDURE Name: ORLANDO GREENE Karin Room #: 412-P [facility] IN M.R.#: [id number] Admission: 10/19/19 Date of : 43 Discharge: 10/27/19 Report #: [id number] Path Case #: [id number] LCA Accession Number: [id number] . 01 Material submitted: . PART A: bone - BONE MARROW BIOPSY PART B: bone - BONE MARROW CLOT PART C: bone - BONE MARROW ASPRIATE SLIDES PART D: bone - PERIPHERAL BLOOD SMEARS PART E: bone - BONE MARROW FLOW . 01 Clinical history: . 74-year-old man with anemia and leukopenia. . . 02 Diagnosis: Bone Marrow Aspirate, Biopsy, Cell Clot and Peripheral Blood: - Peripheral blood with severe normocytic anemia, left shifted and focally dyspoietic granulocytes and mild to moderate thrombocytopenia. - Hypercellular bone marrow with trilineage hematopoiesis, erythroid hyperplasia, dyspoiesis and borderline mildly elevated blasts (4% by morphology, 4.5% by flow cytometry and approximately 5% by immunohistochemistry). - See comment. (ELIU:katty; 10/28/2019) . . Special studies report received from [facility], [address], [address], [place], [address], on case [id number], labeled with their number [id number], dated 10/23/2019. . Flow Cytometry: Hematologic Neoplasia Assessment . Clinical History Cytopenias . Indication for Study Evaluation for hematolymphoid neoplasia . Specimen Bone Marrow Aspirate . Viability 69% (7AAD exclusion) . Interpretation Bone Marrow Aspirate: - Abnormal myeloid maturation and mildly, relatively increased blasts [address] [address] PATHOLOGY RPT PROCEDURE Name: ORLANDO GREENE Room #: 412-P [facility] IN ..#: [id number] Admission: 10/19/19 Date of : 43 Discharge: 10/27/19 Report #: [id number] Path Case #: [id number] (4.5% of sample) (see comments) . Comments The immunophenotypic findings may represent a reactive process (infection, inflammation, medication effect, etc.), or may be associated with a myeloid neoplasm (MDS, MPN, etc.). Myeloproliferative and myelodysplastic disorders cannot be categorically confirmed or excluded by flow cytometric analysis. Correlation with available clinical, laboratory, and morphologic data is recommended. . The results should be considered in the context of decreased specimen integrity. . Populations Analyzed Myeloid Blasts: 4.5% PY92vgq+, CD38+, CD13+, CD34+, CD117+, HLA-DR+, CD33+, CD64-, CD11b-, CD11c-/+, CD7 subset+, CD56-. Blasts are predominantly negative for other markers tested. Lymphocytes: 6.3% B-cells: 0.3%, polytypic/polyclonal sIg light chain pattern T-cells: no significant abnormalities of the markers tested CD4+ T-cells: 4.4% (including 0.1% CD57+ cells) CD8+ T-cells: 2.6% (including 0.5% CD57+ cells) CD4:CD8: 1.7 NK cells: 0.2% Neutrophilic Cells: 80% Decreased CD10 and CD16; partial CD56 (approximately 7% of neutrophilic cells positive); increased CD64; decreased side scatter Monocytic Cells: 2.1% No significant abnormalities Eosinophils: 2.3% No relative increase Basophils: 0.2% No relative increase Plasma Cells: 0.4% Few detected; no overt abnormalities of the surface markers tested (plasma cells are typically underrepresented by flow cytometry; cytoplasmic light chains were not assessed) Hematogones: 0.0% Normal B-cell precursors CD45 Negative 4.2% No significant reactivity with the markers Events/Debris: tested (may represent unlysed red blood cells, erythroid precursors, platelets, debris, etc.) (erythroid precursors may be underrepresented due to sample lysis/processing) . Morphologic Evaluation A slide was reviewed for research associate quality control qc purposes only. . Specimen Description [address] [address] PATHOLOGY RPT PROCEDURE Name: RACHELORLANDO Karin Room #: 412-P DIS IN M.R.#: [id number] Admission: 10/19/19 Date of : 43 Discharge: 10/27/19 Report #: [id number] Path Case #: [id number] Total Cell Yield: 51.84X10 and 6 . Reagent(s) Used CD2, CD3, CD4, CD5, CD7, CD8, CD10, CD11b, CD11c, CD13, CD14, CD15, CD16, CD19, CD20, CD33, CD34, CD38, CD45, CD56, CD57, CD64, CD117, HLA-DR, kappa, lambda . at [employer] [facility], [place]. Sophie Thurston MD Pathologist . . Intended Use Flow cytometry is optimally used to immunophenotypically characterize abnormal populations when they are detected. Negative flow cytometry results do not exclude lymphoma or neoplasia. Possible false negative flow cytometry results may occur in, but are not limited to, the following: neoplastic cells in Hodgkin lymphoma are not typically adequately represented by routine clinical flow cytometry; neoplastic cells may be lost or inadequately represented due to degeneration, sample processing, sampling artifact, or patchy involvement; plasma cells are typically underrepresented by flow cytometry; immature cells/blasts may be underrepresented due to hemodilution; myeloproliferative disorders and low grade myelodysplasia may not have immunophenotypic abnormalities or increased blasts. Correlation with all available clinical, laboratory, and morphologic data is always necessary to assess for the possibility of false negative flow cytometry results and to establish a diagnosis. Each marker in this analysis was used to assess for potential antigenic abnormalities or to evaluate detected abnormalities. . Disclaimer(s) This test was performed at [facility]. at [address], [address] - [employer] Carpenter: Arnoldo Rutherford MD. [facility] is a business unit of [employer]., a wholly-owned subsidiary of [employer]. . Any image or images that accompany this report are financial sales representative images only and should not be used to render a diagnosis. . This test was developed and its performance characteristics determined by [facility]. It has not been cleared or approved by the Food and Drug Administration (FDA). The FDA has determined that such clearance or approval is not necessary. . For inquiries, the physician may contact Lab: [phone] [facility] [place] [address] PATHOLOGY RPT PROCEDURE Name: ORLANDO GREENE Room #: 412-P [facility] IN M.R.#: [id number] Admission: 10/19/19 Date of : 43 Discharge: 10/27/19 Report #: [id number] Path Case #: [id number] . A complete copy of the report is on file. . Professional services performed by [employer] at [address], [place] [address]. Technical services performed by [facility], [place]. at [address], [place] [address]. . (CLW:fred 10/23/2019) . [facility] 10/28/2019 1535 Local . 02 Comment: Overall the bone marrow is hypercellular for the patient's age with trilineage hematopoiesis, marked erythroid hyperplasia, dyspoiesis and borderline mildly elevated blasts. There are 4% blasts by morphology, 4.5% by flow cytometry and approximately 5% by immunohistochemistry. The finding may represent a myelodysplastic syndrome; however, that diagnosis requires correlation with clinical history, additional laboratory data and cytogenetics. Special stains to further evaluate the plasma cells are pending and will be reported as an addendum. Please correlate clinically. The case was discussed preliminarily with Dr. Wesly Bravo on 10/27/2019 at approximately 08:30 a.m. . (CLW:katty; 10/28/2019) . . 02 Addendum: . To further quantify and characterize the plasma cell population and to identify cells in a tissue architectural context, additional properly controlled immunohistochemical stains are performed. . Block A1: CD138 - highlights approximately 5% scattered plasma calls; [place] and lambda in situ hybridization - no clonal population identified. . Block B1: CD138 - highlights approximately 5% scattered plasma calls; [place] and lambda in situ hybridization - plasma cells are polyclonal. . There is no evidence of a plasma cell dyscrasia. Clinical correlation is recommended. (CLW:caryn 10/29/2019) . Professional services performed by [facility] at [address] [place] [address]. Technical services performed by [facility] at [address] [place] [address], [address] [address]. [address] [address] PATHOLOGY RPT PROCEDURE Name: ORLANDO GREENE Room #: 412-P [facility] IN M.R.#: [id number] Admission: 10/19/19 Date of : 43 Discharge: 10/27/19 Report #: [id number] Path Case #: [id number] QMS/10/29/2019 Addendum Electronically Signed by China Jaimes MD, Pathologist . 02 Electronically signed: . China Jaimes MD, Pathologist NPI- [id number] . 01 Gross description: . A. Received in formalin labeled "Orlando Greene, BM biopsy," is a single needle core of cisneros bone measuring 1.9 cm in length and 0.2 cm in diameter. The specimen is submitted entirely in cassette A1, following decalcification. . B. Received in formalin labeled "Orlando Greene, BM aspirate clot," is an aggregate of dark cisneros blood clot measuring 3.5 x 3.3 x 0.9 cm. The specimen is filtered and entirely submitted in cassette B1-B3. (TSD; 10/21/2019) TOB/TOB 10/21/2019 1728 Local . 02 Microscopic: . CBC Data (10/21/19): WBC 6,400 /uL, RBC 2.55, hemoglobin 7.4 g/dL, hematocrit 22.5%, MCV 88.1 fL, MCH 28.9 pg, MCHC 32.8 g/dL, RDW 19.6%, and platelet count 109,000 /uL. White blood cell differential (10/19/19): segs 44%, bands 22%, lymphs 10%, monos 6%, eos 1%, metas 10% and myelos 7%. . Peripheral Blood Smear: Cytomorphological examination of the Kaufman's stained peripheral blood smear confirms the provided data. Red blood cells show severe normocytic anemia with mild anisopoikilocytosis. Elliptocytes and dacrocytes (teardrop cells, pointed RBCs) are noted. No schistocytes or microspherocytes are seen. White blood cells are predominantly segmented neutrophils. Scattered less mature (myelocytes and metamyelocytes) are noted on scanning. Occasional neutrophils have abnormal nuclear lobation. Lymphocytes are predominantly small, round, and mature appearing with condensed chromatin and scant cytoplasm with admixed large granular lymphocytes. Monocytes are mature. Platelets are adequate (mildly decreased) in number and mainly normal in morphology with rare larger platelets noted. . Aspirate Smears: Cytomorphological examination of the Kaufman's stained aspirate smears shows hypercellular spicules present. The overall cellularity is approximately 90%. The myeloid to erythroid ratio is 1:2. Full myeloid maturation is identified and is mildly dyspoietic with abnormal nuclear lobation. Erythroid maturation is mild to moderately dyserythropoietic with irregular nuclear contours, binucleate forms, left shifted maturation, nuclear cytoplasmic dyssynchrony and occasional nuclear budding. In a 500 cell differential, there are 4% blasts (no Vinod rods [facility] [address] [place] [address] PATHOLOGY RPT PROCEDURE Name: ORLANDO GREENE Room #: 412-P DIS IN M.R.#: [id number] Admission: 10/19/19 Date of : 43 Discharge: 10/27/19 Report #: [id number] Path Case #: [id number] are seen), 28% more differentiated myeloids, 65% erythroid precursors, 2% lymphocytes and 1% plasma cells. Megakaryocytes are proportional in number and both normal and abnormal in morphology with variable sizes and nuclear abnormalities including small and/or hypolobated forms present. No lymphoid aggregates or markedly atypical lymphoid cells are seen. Plasma cells are without atypia. Iron stain of the aspirate smear shows 3/4+ iron positivity with spicules present. A rare ringed sideroblast is noted. . Core Biopsy and Cell Clot: The decalcified bone marrow core biopsy is adequate. The bone marrow is hypercellular with an overall cellularity of approximately 70%. The myeloid to erythroid ratio is 1:2. Myeloid and erythroid maturation are dyspoietic. Megakaryocytes are normal in number and both normal and abnormal in morphology. No lymphoid aggregates or markedly atypical lymphoid cells are seen. Bony trabeculae and blood vessels are unremarkable. The cell clot has spicules present that are similar in cellularity and differential morphology as previously described. A rare small well-circumscribed lymphoid aggregate composed of small lymphocytes is noted. A mild eosinophilia is seen. . Properly controlled special stains are performed. . Block A1: Iron - 2/4+ iron positivity; Reticulin - no significant reticulin fibrosis. . Block B1: Iron - 2/4+ iron positivity with spicules present. . To confirm the flow cytometry findings and to identify cells in a tissue architectural context, properly controlled immunohistochemical stains are performed. . Block A1: CD34 - highlights approximately 5% blasts; CD117 - stains scattered cells; MPO - confirms the inverted M/E ratio; Glycophorin-A - confirms the inverted M/E ratio; CD31 - highlights a normal number of megakaryocytes. . Block B1: CD34 - stains approximately 5% blasts; CD117 - stains scattered cells (high background staining); MPO - confirms the inverted M/E ratio; Glycophorin-A - confirms the inverted M/E ratio; CD31 - highlights a normal number of megakaryocytes. . [address] [address] PATHOLOGY RPT PROCEDURE Name: ORLANDO GREENE Room #: 412-P DIS IN M.R.#: [id number] Admission: 10/19/19 Date of : 43 Discharge: 10/27/19 Report #: [id number] Path Case #: [id number] . Flow Cytometry: Flow cytometric immunophenotypic analysis was performed at [facility]. The diagnosis is "abnormal myeloid maturation and mildly, relatively increased blasts (4.5% of sample)." There are 4.5 % myeloid blasts. There are 6.3% lymphocytes. Of the lymphocytes, there are 0.3% polyclonal B-cells. T-cells have a CD4/CD8 ratio of 1.7 and no aberrant T-cell antigen expression. Granulocytes are 80% of cells and have decreased CD10 and CD16 expression, partial CD56 expression (approximately 7% of neutrophilic cells) and increased CD64. Decreased size scatter is noted. There are 0.4% plasma cells. Please see separate flow cytometry report from [facility] ([id number]). . Cytogenetics Analysis: Cytogenetic chromosomal analysis is pending at [facility] ([id number]). . (CLW:katty; 10/28/2019) . . 02 Pathologist provided ICD-10: D64.9, D69.6, D75.89 . 02 CPT . 032632, 828044, 284826, 409041, 173830, 840435, 657108, 907036, 949600, E92331, E13178, A01954, I40799, 206528, 795898 Specimen Comment: A courtesy copy of this report has been sent to [phone] Specimen Comment: [phone], Specimen Comment: Report sent to ,DR LEUNG,DR CHANDLER / DR STUART Specimen Comment: A duplicate report has been generated due to demographic updates. Performed at: 01 [facility] [address], [place] [id number] MD Douglas Guzman MD Phone: [phone] Performed at: 02 [facility] [address] [id number] MD Alexis Lozoya MD Phone: [phone]
== END 2019-10-27 19:48 | DRG 682 ==
LOC: ER 01:48 → EROBS 03:40 → 4N 03:40 → 3W 03:40 → 4W 10-21 23:50 → 4N 10-23 17:00
PROVIDERS: Emergency Medicine; Internal Medicine; Internal Medicine Hematology & Oncology; Nurse Practitioner Adult Health; Nurse Practitioner Family; ADMIT Hospitalist
PROC: 30233N1 Transfusion of Nonautologous Red Blood Cells into Peripheral Vein, Percutaneous Approach (ICD-10-PCS; 2019-10-19)
PROC: 0DJD8ZZ Inspection of Lower Intestinal Tract, Via Natural or Artificial Opening Endoscopic (ICD-10-PCS; principal; 2019-10-22)
PROC: 0DJ08ZZ Inspection of Upper Intestinal Tract, Via Natural or Artificial Opening Endoscopic (ICD-10-PCS; principal; 2019-10-22)
DX: N17.9 Acute kidney failure, unspecified (principal); J96.21 Acute and chronic respiratory failure with hypoxia; I50.42 Chronic combined systolic (congestive) and diastolic (congestive) heart failure; I13.0 Hypertensive heart and chronic kidney disease with heart failure and stage 1 through stage 4 chronic kidney disease, or unspecified chronic kidney disease; D68.59 Other primary thrombophilia; K57.30 Diverticulosis of large intestine without perforation or abscess without bleeding; I25.10 Atherosclerotic heart disease of native coronary artery without angina pectoris; E11.22 Type 2 diabetes mellitus with diabetic chronic kidney disease; I25.5 Ischemic cardiomyopathy; G47.33 Obstructive sleep apnea (adult) (pediatric); N18.3 Chronic kidney disease, stage 3 (moderate); I48.0 Paroxysmal atrial fibrillation; D69.6 Thrombocytopenia, unspecified; E03.9 Hypothyroidism, unspecified; E78.5 Hyperlipidemia, unspecified; M54.9 Dorsalgia, unspecified; N28.9 Disorder of kidney and ureter, unspecified; G89.29 Other chronic pain; D53.9 Nutritional anemia, unspecified; R33.9 Retention of urine, unspecified; R29.6 Repeated falls; I65.22 Occlusion and stenosis of left carotid artery; I71.4 Abdominal aortic aneurysm, without rupture; F03.90 Unspecified dementia, unspecified severity, without behavioral disturbance, psychotic disturbance, mood disturbance, and anxiety; K21.9 Gastro-esophageal reflux disease without esophagitis; I83.90 Asymptomatic varicose veins of unspecified lower extremity; E86.0 Dehydration; K59.00 Constipation, unspecified; D50.9 Iron deficiency anemia, unspecified; R79.89 Other specified abnormal findings of blood chemistry; Z90.49 Acquired absence of other specified parts of digestive tract; Z95.1 Presence of aortocoronary bypass graft; Z95.5 Presence of coronary angioplasty implant and graft; Z95.810 Presence of automatic (implantable) cardiac defibrillator; Z88.8 Allergy status to other drugs, medicaments and biological substances; Z99.81 Dependence on supplemental oxygen; Z79.01 Long term (current) use of anticoagulants; Z87.01 Personal history of pneumonia (recurrent); Z86.73 Personal history of transient ischemic attack (TIA), and cerebral infarction without residual deficits; Z95.828 Presence of other vascular implants and grafts; Z81.8 Family history of other mental and behavioral disorders; I25.2 Old myocardial infarction; Z82.49 Family history of ischemic heart disease and other diseases of the circulatory system; Z68.30 Body mass index [BMI] 30.0-30.9, adult; Z86.010 Personal history of colon polyps
CPT/HCPCS: 10047; 10790; 10879; 62110; 62900; 70005

== ENCOUNTER 2019-11-03 17:39 | Inpatient (IN) | payer OTHER ==
[~2019-11-03] VITALS: Ht 175.3 cm; Wt 92.5 kg
[2019-11-03 17:41] VITALS: BP 127/48
[2019-11-03] MEDS ORDERED: MELATONIN5 M4 PO (17:55)
[2019-11-03] MEDS ORDERED: TRAZODONE HCL50 MG PO (17:56)
[2019-11-03 17:57] LABS: HEMATOCRIT 22.8 % (42.0-52.0); HEMOGLOBIN 7.4 gm/dL (14.0-18.0); MCH 28.1 pg (26.0-34.0); MCHC 32.3 g/dL (28.0-37.0); PLATELET COUNT 106 thou/uL (150-400); RBC 2.62 mil/uL (4.50-6.00); RDW 18.8 % (10.5-14.5); WBC 4.1 thou/uL (4.0-11.0)
[2019-11-03 18:05] LABS: CALCIUM 9.7 mg/dL (8.5-10.1); CREATININE 1.6 mg/dL (0.7-1.3); POTASSIUM 3.4 mmol/L (3.5-5.1)
[2019-11-03 18:11] LABS: ALBUMIN 2.5 g/dL (3.4-5.0); DIRECT BILIRUBIN 0.4 mg/dL (<0.1-0.2); TOTAL BILIRUBIN 1.1 mg/dL (<0.1-1.0); TOTAL PROTEIN 6.6 g/dL (6.4-8.2)
[2019-11-03 18:15] LABS: APTT 31.5 Seconds (24.5-32.8); INR 1.1; PROTIME 10.8 Seconds (9.3-11.4)
--- NOTE | 2019-11-03 19:52 | EKG ---
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 : 1945 Requested By: Linus Larson Order Number: [id number] MD: Manjeet Winters Measurements Intervals [place] Rate: 60 P: MN: 71 QRS: 19 QRSD: 107 T: QT: 370 QTc: 370 Interpretive Statements Atrial-paced rhythm Nonspecific repol abnormality, diffuse leads Compared to ECG 10/20/2019 10:15:50 AV dual-paced complex(es) or rhythm no longer present Electronically Signed On 11-03-2019 19:51:39 SALES PROMOTION COORDINATOR by Manjeet Winters [email or web address] <ELECTRONICALLY SIGNED> By: Manjeet Winters MD, [facility] 11/03/191950 46 46 Manjeet Winters MD, FAC /EPI
[2019-11-03 19:58] VITALS: BP 108/45
[2019-11-03 20:01] LABS: ABSOLUTE NEUTROPHILS 2.5 thou/uL (1.4-8.2); METAMYELOCYTES 15 %; MYELOCYTES 3 %; NUCLEATED RBCS 1 /100WBC
[2019-11-03 20:03] LABS: ANISOCYTOSIS 2+; OVALOCYTES 1+
[2019-11-03 20:04] LABS: SCHISTOCYTES OCCASIONAL; TEARDROPS OCCASIONAL
[2019-11-03 20:45] VITALS: BP 121/38
--- NOTE | 2019-11-04 05:09 | NUR ---
patient aox4 makes needs known. patient was admitted for low hgb. patient skin is pale. patient encouraged fluids. patient is on 3l of oxygen continous. patient needs minimum assistance with adl, bed mobility, transfer and toileting. patient uses urinal. patient refused scd. patient educated on the use os is. patient in bed asleep at this time breathing regular and unlaboured.
[2019-11-04 07:23] VITALS: BP 109/40
[2019-11-04 07:36] LABS: WBC 3.7 thou/uL (4.0-11.0)
[2019-11-04 07:38] LABS: HEMATOCRIT 20.6 % (42.0-52.0); HEMOGLOBIN 6.9 gm/dL (14.0-18.0); MCH 28.6 pg (26.0-34.0); MCHC 33.2 g/dL (28.0-37.0); RDW 18.6 % (10.5-14.5)
[2019-11-04 07:44] LABS: ALBUMIN 2.2 g/dL (3.4-5.0); CALCIUM 9.2 mg/dL (8.5-10.1); CREATININE 1.3 mg/dL (0.7-1.3); MAGNESIUM 1.5 mg/dL (1.8-2.4); POTASSIUM 3.5 mmol/L (3.5-5.1); TOTAL BILIRUBIN 1.2 mg/dL (<0.1-1.0)
[2019-11-04 08:46] LABS: ABSOLUTE NEUTROPHILS 2.2 thou/uL (1.4-8.2); ANISOCYTOSIS 2+; HYPOCHROMASIA 2+; LARGE PLATELETS FEW; METAMYELOCYTES 5 %; MICROCYTES 1+; MYELOCYTES 2 %; OVALOCYTES 1+; PLATELET COUNT 93 thou/uL (150-400); PLATELET ESTIMATE NORMAL
[2019-11-04 10:42] VITALS: BP 124/48
[2019-11-04 11:16] VITALS: BP 111/45; BP 137/48
--- NOTE | 2019-11-04 11:58 | NUR ---
DISCHARGE PLANNING. [facility] PLAN IS FOR PATIENT TO RETURN TO [facility] AT DISCHARGE. CALL PLACED TO MIC, OUTBOARD MOTOR TESTER. NOTIFIED OF PATIENTS DISCHARGE PLAN. MIC STATES SHE WILL HAVE TO OBTAIN INSURANCE AUTH FROM PATIENTS PROVIDER. PATIENT CLINICALS FAXED TO HER. ABIEL TO BEGIN INSURANCE AUTH PROCESS WITH PATIENTS PROVIDER. UNIT SW NOTIFIED.
--- NOTE | 2019-11-04 12:01 | NUR ---
PT ADMITTED RELATED TO LOW HGB. CM REVIEWED CHART AND SPOKE WITH CARE TEAM. CM MET WITH PT AT BEDSIDE THIS DAY. PT IS A&O X4. CM ROLE INTRODUCED. 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 PRIOR TO THAT PT HAD LIVED IN A HOUSE WITH HIS SPOUSE AND SON. PT HAS A CANE AND O2 THROUGH [facility] THAT HE HAD ONLY USED AT NIGHT AT HOME. PT HAD BEEN ON 4L AT REHAB. PT RETURNED TO RECIEVE BLOOD TRNASFUSION. PT HOPES TO RETURN TO SKILLED UPON TO DC RESUME THERAPY. CM SPOKE WITH SPOUSE AND SHE INDICATED THAT SAME. CM ASKED PT TO SEND CLINICAL UPDATE TO [facility] AND INDICATED THAT PT WILL BE READY TO RETURN AFTER TRANSFUSION THIS DAY. [facility] WILL NEED AUTH THROUGH [facility] FOR PT TO RETURN. LEV NOTIFIED HOSPITALIST. CM TO FOLLOW INDICATED WITH DC PLANNING.
[2019-11-04 14:47] VITALS: BP 104/44
[2019-11-04 16:05] LABS: HEMATOCRIT 23.7 % (42.0-52.0); HEMOGLOBIN 7.7 gm/dL (14.0-18.0); MCH 28.5 pg (26.0-34.0); MCHC 32.4 g/dL (28.0-37.0); MCV 88.1 fL (80.0-100.0); RBC 2.7 mil/uL (4.50-6.00); WBC 4.1 thou/uL (4.0-11.0)
[2019-11-04 19:06] VITALS: BP 110/49
--- NOTE | 2019-11-04 19:43 | NUR ---
Assumed care at 0910 from previous shift. Received awake on bed. Due medications given as prescribed, able to swallow meds w/o difficulty. On O2 at 3lpm via nasal cannula. Vital signs stable. On heart healthy diet- with poor appetite, pt not liking hospital food, offered snacks; no nausea, no vomiting and no abdominal pain noted. With SL at R AC- intact. For OT/PT. Visited by today. Falls bundle in place. Continent of B/B. Pt seen by Dr Pulido today- ordered blood transfusion, 1 unit PRBC- given as prescribed, transfused as per protocol, no reactions noted post transfusion. Repeat CBC post transfusion ordered at 1530, results relayed to Dr Mccloud, latest Hb: 7.7. For possible discharge post transfusion but as per CM, will need auth to go back to rehab- patient informed as well as Dr Chester. No episodes of bleeding noted the whole shift. Assisted in ADLs. To continue monitoring patient.
--- NOTE | 2019-11-05 02:09 | NUR ---
PATIENT AOX4 MAKES NEEDS KNOWN. 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 PATCH APPLIED ON THE RIGHT KNEE. PATIENT SKIN IS PALE.PATIENT USES URINAL. FALL PRECAUTION IN PLACE. PATIENT IN BED ASLEEP AT THIS TIME BREATHING REGULAR AND UNLABOURED.
[2019-11-05 07:02] VITALS: BP 148/58
[2019-11-05 08:02] VITALS: BP 128/48
--- NOTE | 2019-11-05 08:37 | HC ---
[facility] [place] [address] CONSULTATION Name: ORLANDO RAMOS Room #: 458-P ADM IN .R.#: [id number] Admission: 11/03/19 Attend Phys: Eduardo Chester MD Discharge: Date of : 43 Report #: [id number] THIS REPORT FOR: //name// CC: Keyona Winters MD [facility] Fabiano Meza DO REASON FOR CONSULTATION: Anemia. HISTORY OF PRESENT ILLNESS: The patient is a very pleasant 74-year-old male that I have met on 2 occasions before. Since I last saw him, we had the receipt of a bone marrow biopsy done on his last admission. I discussed this with both the patient in person and his by phone. Unfortunately, the bone marrow biopsy was consistent with a form of myelodysplastic syndrome. This showed a hypercellular bone marrow with anemia and also had high risk and complex cytogenetics. There also may be an increased blast count. These were all quite worrisome and the combination, I think puts him in a high risk category. His complex cytogenetics with deletion 5, deletion 7 and added 12 and added 13, deletion 13, deletion 18, among other changes. I discussed with the patient that this is probably not curable, but we can be supporting him with transfusions and also medication called Procrit as his EPO level when his hemoglobin was 7, it was approximately 55. I also strongly encouraged him and we will help arrange a visit with Dr. Keyona Mock, at [facility]. He is an expert in this area. I am concerned about the patient's ability to tolerate standard chemotherapy such as IV Azacitidine and other agents. We would like to get his input though. I did talk to the patient's , having cautioned her that the survival is generally between 6 and 12 months. If this is indeed a high risk version that does not respond to therapy. I mostly explained to the patient that he would be fatigued and tired that we could check into therapy that I am worried that it may make him sicker more than helping, but I would as mentioned above defer to Dr. Mock regarding this. The patient had had fatigue, had been in rehabilitation at ___, had been walking around. Denies fevers, chills, nausea, vomiting, new arm or new leg swelling or bleeding difficulties. PAST MEDICAL HISTORY: Notable for history of atrial fibrillation, chronic kidney disease, anemia, congestive heart failure, AICD in situ, history of coronary artery disease with stents in the past, also hypertension, hyperlipidemia, pancreatitis, history of varicose veins, history of diabetes type 2, history of hyperlipidemia and also history of hypothyroidism. There may also be some cognitive impairment, though this needs to be clarified. [facility] [address] [place] [address] CONSULTATION Name: ORLANDO RAMOS Room #: 458-P [facility] IN M.R.#: [id number] Admission: 11/03/19 Attend Phys: Eduardo Chester MD Discharge: Date of : 43 Report #: [id number] FAMILY HISTORY: Longevity on his mother's side. No cancer or blood issues. I think he did mention he had a sister with leukemia, but it sounds like ___ long duration and probably CLL. Four children. 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 MEDICATIONS: At this time in the hospital currently includes erythropoietin 40,000 units weekly that I began today. Torsemide 40 daily, isosorbide mononitrate 60 mg daily, clopidogrel 75 daily, amiodarone 200 daily, carvedilol 25 b.i.d., pantoprazole 40 daily, levothyroxine 88 mcg daily, melatonin 5 mg at bedtime, trazodone 50 at bedtime, fluticasone 2 sprays nasally daily, atorvastatin calcium 40 mg at bedtime, had been on IV fluids. PHYSICAL EXAMINATION: GENERAL: The patient appears his stated age. VITAL SIGNS: Current weight is 203 pounds or 92.5 kilograms, height 5 feet 9 or 175.3 cm. Blood pressure is 109/40 in the left arm. O2 sat 90%. Respirations 30, temperature 98.4, pulse 59. MOOD: The patient is alert and pleasant, conversant. NEUROLOGIC: Speech and thought pattern appear to be normal. He is moving extremities. Does describe some pain in his right forearm, which I think he had a fracture. HEART: Appears regular rate. LUNGS: Mostly clear anteriorly, un-symmetric, unlabored respiratory expansion without rhonchi or rales. LYMPHATICS: No enlarged lymph nodes in the supraclavicular, cervical, axillary or inguinal region. EXTREMITIES: Without clubbing, cyanosis. There is some trace edema. LABORATORY DATA: This admit notable for BUN of 23, creatinine 1.3. Liver functions with an AST of 26, total bilirubin 1.2. The patient tends to run a little bit high in the past also, SGPT 38. Albumin 2.5. On 10/15/2019, the iron was 21, TIBC 145%, iron saturation 14. Note after that he received about 1600 mg of IV iron in the form of iron sucrose. Coags were normal this admit. White count of 3.7, hemoglobin 6.9, last admit here have been in the 7-8 range; MCV 86, platelets today 93, yesterday 106, back in August had been about the same range. Differential notable for metamyelocytes ranged between 5 and 15% myelocytes, recently ranged between 2 and 7%. Note that the absolute retic count back in 10/20/2019 was 0.0515. TSH on 10/19/2019 was 0.831. Ferritin was 2160 on 10/20/2019. Folate 23.7 on 08/18/2019. Vitamin B12 of 486 on 08/18/2019. Erythropoietin level on 10/20/2019 was 55.2, on 08/18/2019 it had been 204.8. Imaging had included CT chest, abdomen and pelvis back in 08/2019, did have [facility] [address] [place] [address] CONSULTATION Name: ORLANDO RAMOS Room #: 458-P ADM IN [facility].#: [id number] Admission: 11/03/19 Attend Phys: Eduardo Chester MD Discharge: Date of : 43 Report #: [id number] bilateral lower lobe atelectasis at that time. Heart was enlarged with a pacemaker. No fractures. Abdominal aortic stent graft placement in the past. Atrophy of the pancreas. No liver or spleen pathology mentioned. There is also a low density lesion in the liver that has been present for quite some time, measured approximately 3.7 x 5 cm, this had been seen in 2010. ASSESSMENT AND PLAN: 1. Myelodysplastic that appears to be high risk with multiple cytogenetic abnormalities, requirement of transfusion with the presence of anemia and thrombocytopenia. Discussed in person with the patient and by phone with the patient's , Marisa. Mentioned that this is probably not curable and I mentioned several times, I would strongly suggest a second opinion visit with Dr. Keyona Mock. I am worried that the therapies may be very harsh for this elderly gentleman. I have arranged for a transfusion today and also for the initiation of Procrit 40,000 units given his weight of approximately almost 100 kilograms. I am hoping this will help his cardiac function and avoid chest pain. I did also explain to the that the prognosis with this is maybe between 6 and 9 months, but again I mentioned, we defer other questions and definitive answers to Dr. Mock. 2. Low platelets. No bleeding. No transfusion. 3. Weakness, debility and falls. The patient had been on rehabilitation. He hopes to return. 4. History of non-ST elevation myocardial infarction with drug-eluting stent in the past. No cardiac issues at this time, it is my understanding. 5. Coronary artery disease. Defer to others. 6. History of congestive heart failure. Defer to others. 7. Chronic kidney disease, stable. 8. AICD in situ. Defer to others. 9. Hypertension. Defer to others. 10. Paroxysmal atrial fibrillation. Defer to others. 11. Diabetes type 2, meds and monitoring per others. 12. Obstructive sleep apnea. In the past had use home oxygen. 13. Hyperlipidemia. Defer meds to others. 14. History of stroke in the past. Continues aspirin, statin and Plavix per others. We will be available for questions. <ELECTRONICALLY SIGNED> By: Wesly Bravo MD 11/05/19 0837 [id number] Wesly Bravo MD /nt
--- NOTE | 2019-11-05 13:37 | NUR ---
CARE TEAM INDICATED THAT PT IS MEDICALLY STABLE TO DC BACK TO [facility] TODAY. [facility] AUTH WAS RECEIVED. [facility]SP[facility] ARRANGED FOR 1500. CHART COPY ORDERED. REPORT TO BE CALLED TO . CM CALLED AND LEFT VM FOR PT'S SPOUSE INDICATING THE ABOVE. NO OTHER CM INTERVENTION INDICATED AT THIS TIME. CASE CLOSED.
--- NOTE | 2019-11-05 16:19 | NUR ---
Assumed patient care at 0715. Vital signs stable. Patient worried about his diagnosis of Myelodysplastic Syndrome. Appetite is poor. Patient uses urinal without assistance. He is alert and oriented x's 4. O2 continues at 3L per nasal cannula. Patient discharged back to Rehabilitation Facility at 1550 after verbalizing an understanding of all discharge instructions.
== END 2019-11-05 15:50 | DRG 808 ==
LOC: ER 17:39 → EROBS 19:36 → 4W 19:36
PROVIDERS: Internal Medicine Hematology & Oncology; Nurse Practitioner; ADMIT Hospitalist
PROC: 30233N1 Transfusion of Nonautologous Red Blood Cells into Peripheral Vein, Percutaneous Approach (ICD-10-PCS; principal; 2019-11-04)
DX: D61.818 Other pancytopenia (principal); E43 Unspecified severe protein-calorie malnutrition; N17.9 Acute kidney failure, unspecified; I50.22 Chronic systolic (congestive) heart failure; J96.11 Chronic respiratory failure with hypoxia; I13.0 Hypertensive heart and chronic kidney disease with heart failure and stage 1 through stage 4 chronic kidney disease, or unspecified chronic kidney disease; D46.9 Myelodysplastic syndrome, unspecified; I25.10 Atherosclerotic heart disease of native coronary artery without angina pectoris; G47.33 Obstructive sleep apnea (adult) (pediatric); I48.0 Paroxysmal atrial fibrillation; N18.3 Chronic kidney disease, stage 3 (moderate); G89.29 Other chronic pain; M54.9 Dorsalgia, unspecified; E78.5 Hyperlipidemia, unspecified; E11.22 Type 2 diabetes mellitus with diabetic chronic kidney disease; I25.5 Ischemic cardiomyopathy; E87.6 Hypokalemia; I71.4 Abdominal aortic aneurysm, without rupture; I65.29 Occlusion and stenosis of unspecified carotid artery; I83.90 Asymptomatic varicose veins of unspecified lower extremity; E83.42 Hypomagnesemia; G47.00 Insomnia, unspecified; Z95.1 Presence of aortocoronary bypass graft; Z95.5 Presence of coronary angioplasty implant and graft; Z95.810 Presence of automatic (implantable) cardiac defibrillator; I25.2 Old myocardial infarction; Z86.73 Personal history of transient ischemic attack (TIA), and cerebral infarction without residual deficits; Z90.49 Acquired absence of other specified parts of digestive tract; Z88.1 Allergy status to other antibiotic agents; Z87.891 Personal history of nicotine dependence; Z68.30 Body mass index [BMI] 30.0-30.9, adult; Z79.82 Long term (current) use of aspirin; Z79.899 Other long term (current) drug therapy
CPT/HCPCS: 10040